=== PATIENT | female | born 1950 | race Caucasian/White ===

== ENCOUNTER → 2016-07-03 | Outpatient (CLI) | payer OTHER ==
[~2016-07-03] MED LIST: ATOR-24 PO; CLOB-65 EXT; DULO-24 PO; FLUT0.15 NAE; MELA1TAB22 PO; OMEG10007 PO; OMEP10CA2 PO; VTMD1000 PO
--- NOTE | 2016-07-03 16:42 | MAMMOGRAPHY REPORT ---
BILATERAL DIGITAL SCREENING MAMMOGRAM WITH CAD: 07/03/2016 CLINICAL HISTORY: Routine screening. Patient has no complaints. TECHNIQUE: Current study was also evaluated with a Computer Aided Detection (CAD) system. Bilatera l CC and MLO views were obtained. COMPARISON: Comparison is made to exams dated: 06/28/2015 mammogram, 06/22/2014 mammogram, 06/16/2013 ma mmogram, 06/06/2012 mammogram, 01/12/2012 specimen, and 12/21/2011 mammogram - [facility]. BREAST COMPOSITION: The tissue of both breasts is heterogeneously dense, which may obscure small ma sses. FINDINGS: No suspicious masses, calcifications, or areas of architectural distortion are noted in e ither breast. There has been no significant interval change compared to prior exams. A linear scar marker denotes a scar on the left breast. Bilateral benign-appearing calcifications are not signifi cantly changed. IMPRESSION: ACR BI-RADS CATEGORY 2: BENIGN There is no mammographic evidence of malignancy. A 1 year screening mammogram is recommended. The p atient will receive written notification of the results. Approximately 10% of breast cancers are not detected with mammography. A negative mammographic repor t should not delay biopsy if a clinically suggestive mass is present. Brittny Cheng M.D. ah/:07/03/2016 15:32:33 Drafter Cartographic: Zhane BONDS(Marce)(Jason)(BD), [facility] letter sent: Normal 1/2 BI-RADS Code: ACR BI-RADS Category 2: Benign
== END | disposition home or self-care (01) ==
LOC: C.MAMM 12:20
PROVIDERS: ATTEND Family Medicine
DX: Z12.31 Encounter for screening mammogram for malignant neoplasm of breast (principal)

== ENCOUNTER → 2016-08-28 | Outpatient (CLI) | payer OTHER ==
[2016-08-28 12:38] LABS: ALT/SGPT 28 U/L (12-78); AST/SGOT 15 U/L (15-37); BLOOD UREA NITROGEN 20 mg/dl (7-18); BUN/CREATININE RATIO 24.9 (10-20); CARBON DIOXIDE 29 mmol/L (21-32); CHLORIDE 107 mmol/L (98-107); CREATININE 0.79 mg/dl (0.60-1.20); GLUCOSE 114 mg/dl (70-99); POTASSIUM 4.2 mmol/L (3.5-5.1); SODIUM 140 mmol/L (136-145)
[2016-08-28 12:41] LABS: ALKALINE PHOSPHATASE 127 U/L (45-117)
[2016-08-28 12:48] LABS: CHOLESTEROL/HDL RATIO 4.1
[2016-08-28 13:00] LABS: ESTIMATED AVERAGE GLUCOSE 140 mg/dl; HA1C FLAG Normal (Normal)
== END | disposition home or self-care (01) ==
LOC: C.LABPVFM 09:31
PROVIDERS: ATTEND Family Medicine
DX: I10 Essential (primary) hypertension (principal); G43.909 Migraine, unspecified, not intractable, without status migrainosus; I73.00 Raynaud's syndrome without gangrene; R73.9 Hyperglycemia, unspecified

== ENCOUNTER → 2017-03-02 | Outpatient (CLI) | payer OTHER ==
[2017-03-02 13:14] LABS: HEMOGLOBIN A1C 6.6 % (4.5-5.6)
[2017-03-02 13:29] LABS: BLOOD UREA NITROGEN 14 mg/dl (7-18); CALCIUM 9.3 mg/dl (8.5-10.1); CARBON DIOXIDE 30 mmol/L (21-32); CREATININE 0.85 mg/dl (0.60-1.20); GLUCOSE 140 mg/dl (70-99); SODIUM 135 mmol/L (136-145)
== END | disposition home or self-care (01) ==
LOC: C.LABPVFM 09:14
PROVIDERS: ATTEND Family Medicine
DX: E11.9 Type 2 diabetes mellitus without complications (principal)

== ENCOUNTER → 2017-06-02 | Outpatient (CLI) | payer OTHER ==
[2017-06-02 13:36] LABS: ALBUMIN 4.1 gm/dl (3.4-5.0); ALT/SGPT 55 U/L (12-78); AST/SGOT 26 U/L (15-37); BLOOD UREA NITROGEN 18 mg/dl (7-18); CALCIUM 9.4 mg/dl (8.5-10.1); CARBON DIOXIDE 30 mmol/L (21-32); CREATININE 0.81 mg/dl (0.60-1.20); GLUCOSE 140 mg/dl (70-99); HEMOGLOBIN A1C 6.9 % (4.5-5.6); POTASSIUM 4.1 mmol/L (3.5-5.1); SODIUM 136 mmol/L (136-145)
[2017-06-02 13:42] LABS: ALKALINE PHOSPHATASE 119 U/L (45-117); CHOLESTEROL 158 mg/dl (0-200); LDL CHOLESTEROL CALCULATED 72 mg/dl
== END | disposition home or self-care (01) ==
LOC: C.LABPVFM 07:34
PROVIDERS: ATTEND Family Medicine
DX: E11.9 Type 2 diabetes mellitus without complications (principal); E78.5 Hyperlipidemia, unspecified; I10 Essential (primary) hypertension; J22 Unspecified acute lower respiratory infection

== ENCOUNTER → 2017-07-06 | Outpatient (CLI) | payer OTHER ==
--- NOTE | 2017-07-07 15:22 | MAMMOGRAPHY REPORT ---
BILATERAL DIGITAL SCREENING MAMMOGRAM TOMOSYNTHESIS WITH CAD: 07/06/2017 CLINICAL HISTORY: Routine screening. Patient has no complaints. TECHNIQUE: Breast tomosynthesis in addition to standard 2D mammography was performed. Current study was also evaluated with a Computer Aided Detection (CAD) system. COMPARISON: Comparison is made to exams dated: 07/03/2016 mammogram, 06/28/2015 mammogram, 06/22/2014 joce mogram, 06/16/2013 mammogram, 06/06/2012 mammogram, and 06/11/2011 mammogram - [facility]. BREAST COMPOSITION: There are scattered areas of fibroglandular density in both breasts. FINDINGS: There are possible clusters of microcalcifications in the upper outer middle one third of the left breast, and medial, middle one third of the left breast for which additional spot magnificat ion views are recommended. A linear scar marker overlies the left lower inner quadrant. There are also a few benign coarse calc ifications in the left breast. No other suspicious mass, architectural distortion or cluster of micro calcifications is seen. IMPRESSION: ACR BI-RADS CATEGORY 0: INCOMPLETE EVALUATION: NEED ADDITIONAL IMAGING EVALUATION The possible clusters of microcalcifications in the left breast need additional imaging evaluation. The patient will be called to schedule an appointment. Approximately 10% of breast cancers are not detected with mammography. A negative mammographic report should not delay biopsy if a clinically suggestive mass is present. So Medeiros M.D. ay/:07/06/2017 17:41:26 Plumbing Contractor: Brittanie GARNER)(Jason), [facility] letter sent: Addl Imaging 0 BI-RADS Code: ACR BI-RADS Category 0: Incomplete Evaluation: Need Additional Imaging Evaluation
== END | disposition home or self-care (01) ==
LOC: C.MAMM 09:06
PROVIDERS: ATTEND Family Medicine
DX: Z12.31 Encounter for screening mammogram for malignant neoplasm of breast (principal); R92.0 Mammographic microcalcification found on diagnostic imaging of breast

== ENCOUNTER 2019-10-28 12:34 | Inpatient (IN) ==
[2019-10-28] MEDS ORDERED: HEPARIN SOD (PORCINE) 1000 UNIT/ML 10 ML VIAL ONE (12:39)
[2019-10-28] MEDS ORDERED: TICAGRELOR 90 MG TAB PO ONE (12:39)
--- NOTE | 2019-10-28 12:50 | Emergency Department Note ---
Impression & Plan Acute [place], ST elevation (STEMI) myocardial infarction, Chest pain, Breath shortness ED Provider Note NAME: STEFAN ECHEVARRIA AGE: 69 SEX: F : 1950 ARRIVES VIA: Ambulance INFORMANT: Patient ED PROVIDER(S): Eran Leblanc DO CHIEF COMPLAINT: Chest pain HPI: Patient is a 69-year-old female who presents the ER for chest pain which started around 930 this morning. EMS was called. I received medical command. I reviewed the EKG. EKG showed anterior STEMI. STEMI alert was called. Patient notes that the chest pain started in the middle of her chest and goes through to her back. Goes up to both arms which feel heavy. She does have a history of smoking, diabetes, hypertension and hyperlipidemia. No previous heart disease. Pain is currently 9 out of 10. She received 4 nitroglycerin prior to arrival as well as complete baby aspirin. Never had any exertional chest pain or shortness of breath. ROS: See above HPI for pertinent positives & negatives. A total of 10 systems reviewed and were otherwise negative. PAST MEDICAL HISTORY:See Below PAST SURGICAL HISTORY:See Below FAMILY HISTORY:See Below SOCIAL HISTORY:See Below HOME MEDICATIONS:See Below ALLERGIES:See Below VITALS:See Below PHYSICAL EXAMINATION: GENERAL: Sitting up in bed, alert, ill-appearing, moderate distress EYE EXAM: normal conjunctiva. OROPHARYNX: no exudate, no erythema, lips, buccal mucosa, and tongue normal and mucous membranes are moist NECK: supple, no nuchal rigidity, no adenopathy, non-tender LUNGS: Clear to auscultation. Normal chest wall mechanics HEART: no murmurs, S1 normal and S2 normal ABDOMEN: abdomen soft, non-tender, normo-active bowel sounds, no masses, no rebound or guarding. BACK: Back is symmetrical on inspection and there is no deformity, no midline tenderness, no CVA tenderness. SKIN: no rashes and no bruising UPPER EXTREMITIES: upper extremities are grossly normal. Radial pulses equal bilateral LOWER EXTREMITIES: No pitting edema. Calves are equal bilateral NEURO EXAM: Normal sensorium, cranial nerves II-XII grossly intact, normal speech, no gross weakness of arms, no gross weakness of legs. MEDICAL DECISION MAKING: Patient is a 69-year-old female who presents the ER for midsternal chest pain. I received medical command and STEMI alert was called. On arrival patient had already received aspirin and nitroglycerin. Systolic blood pressures were 101. Patient was given IV fluids. IV was established chest x-ray was obtained. EKG showed ST segment elevations V1 through V6 as well as the high lateral leads with depressions in the inferior leads. Chest x-ray showed some vascular congestion. Labs showed a leukocytosis of 14,000. No significant anemia. INR was unremarkable. BMP as well as LFTs bilirubin was unremarkable. Troponin was detectable at 0.272. Lipase was normal. Patient was given Brilinta while in the ER after discussion with Dr. Gray who presented at bedside with a heart alert. was updated bedside. Patient was taken emergently to Maintenance And Operations Supervisor for STEMI. Triage Nursing notes reviewed. Prior medical records reviewed Vital Signs: reviewed and remarkable for no significant abnormalities Differential diagnosis: Differential diagnoses includes but is not limited to acute coronary syndrome, myocardial infarction, pericarditis, pulmonary embolus, aortic dissection, pneumonia, pneumothorax, musculoskeletal, shingles, esophageal. ER treatment provided: See below Diagnostics interpreted by me: ECG: Sinus rhythm rate of 61 ST depressions in the inferior leads ST elevations V1 through V6 as well as the high lateral leads Anterior STEMI Cardiac Monitoring: An order was placed for continuous cardiac monitoring. The monitor shows a rate of 68 with sinus rhythm. Laboratory studies: As stated above and show below. Imaging studies: Portable AP upright 1 view of the chest shows vascular congestion Consultation(s): Dr. Gray presented to bedside and took patient emergently to the Maintenance And Operations Supervisor for STEMI Patient will be admitted to Dr. Chavo Ma ED COURSE: Procedures: none Critical Care: I have personally spent 32 minutes of critical care time in the direct management of this patient. This includes bedside care, interpretation of diagnostic studies, and testing, discussion with consultants, patient, and family members, and other required patient management activities. This 32 minutes is in excess of all separately billable procedures. Past Med/Surg History Medical History (Updated 10/28/19 @ 16:52 by Eran Leblanc DO) Benign hypertension Cellulitis of right foot Diabetes mellitus Surgical History (System 08/14/19 @ 15:35 by Lolly Mcleod) History of bladder surgery History of oophorectomy History of tubal ligation Family History (System 08/14/19 @ 15:35 by Lolly Mcleod) Sister Breast cancer Grandmother (Paternal) Diabetes Mother Hypertension Denies family history of Ovarian cancer Prostate cancer Myocardial infarction Colorectal cancer Social History (System 08/14/19 @ 15:35 by Lolly Mcleod) Smoking Status: Former smoker Cigarettes Per Day: 20; Second Hand Exposure: No; Do You Dip or Chew Tobacco: No; Tobacco Cessation Education Requested by Patient: No Hx Alcohol Use: Yes Hx Substance Use: No Preferred Language: Irish Communication Ability: Effective Packaging Inspector Required: No Beliefs That Will Affect Care: None marital status: Current Living Situation: Spouse current occupational status: retired Other Information That Helps Us Care for You: No Feels Safe at Home: Yes Safety Concerns: Feels Safe At This Time caffeine: Yes (coffee) Dental Care, Regularly: Yes Physical Activity Frequency: Does not Exercise Seatbelt Use: always Sunscreen Use: No Allergies Allergies Allergy/AdvReac Type Severity Reaction Status Date / Time No Known Allergies Allergy Verified 10/03/19 07:52 Home Meds Home Medications Medication Instructions Recorded Confirmed ascorbic acid (vitamin C) 500 mg cap PO .1 daily cap 08/08/18 10/03/19 capsule cyanocobalamin (vitamin B-12) 100 PO .TAKE 1 TABLET DAILY tab 08/08/18 10/03/19 mcg tablet ibuprofen 200 mg tablet PO .2 tables 3 times a d tab 08/08/18 10/03/19 melatonin 5 mg tablet 1 PO .TAKE 1 TABLET Bedtim tab 08/08/18 10/03/19 pyridoxine (vitamin B6) 100 mg PO .TAKE 1 TABLET DAILY tab 08/08/18 10/03/19 tablet omega-3 fatty acids 1,000 mg 2,000 mg PO DAILY cap 08/30/18 10/03/19 capsule turmeric 400 mg capsule 400 mg PO DAILY cap 08/30/18 10/03/19 calcium carbonat and lactate 200 2 tab PO DAILY 09/05/18 10/03/19 mg calcium-vitamin D3 250 unit tablet Previous Rx's Medication Instructions Recorded fluticasone propionate 50 2 sprays INTRANASAL DAILY #18.2 gm 08/30/18 mcg/actuation nasal spray,suspension omeprazole 20 mg tablet,delayed 20 mg PO DAILY #90 tab 08/30/18 release clobetasol 0.05 % topical cream See Rx Instructions .ROUTE 01/17/19 .COMPLEX #30 gm atorvastatin 40 mg tablet 40 mg PO DAILY #30 tab 09/12/19 diltiazem HCl 120 mg capsule,24 120 mg PO DAILY #30 cap 09/12/19 hr,extended release blood sugar diagnostic #100 ea 09/28/19 lancets 30 gauge #100 ea 09/28/19 metformin 500 mg tablet See Rx Instructions .ROUTE 09/28/19 .COMPLEX #0 tab glipizide 5 mg tablet 5 mg PO BID #60 tab 10/03/19 losartan 50 mg tablet 50 mg PO DAILY #30 tab 10/03/19 Results & Data (ED) Vital Signs Vital Signs - 24 hr 10/28/19 12:34 10/28/19 12:43 10/28/19 12:45 Temperature 36.7 C Temperature Source Oral Pulse Rate 60 60 63 Pulse Rate from SpO2 Sensor 60 63 Pulse Rhythm Regular Respiratory Rate 27 H 22 23 Respiratory Effort / Characteristics Non-Labored Spontaneous Respiratory Depth Normal Respiratory Pattern Regular Blood Pressure 124/68 124/68 109/92 Blood Pressure Mean 86 83 103 Pulse Oximetry 88 L 90 89 L Oxygen Delivery Method Room Air Room Air Room Air Oxygen Flow Rate Sepsis Recent Fever Within 48 Hours No Sepsis New/Unexplained Change in Mental Status No Sepsis Action Taken by Nursing No Action Required Oxygen Flow Rate - Titration 3 Pulse Oximetry Post Tiitration 94 10/28/19 12:47 10/28/19 14:34 Temperature Temperature Source Pulse Rate 70 73 Pulse Rate from SpO2 Sensor 69 73 Pulse Rhythm Respiratory Rate 21 15 Respiratory Effort / Characteristics Respiratory Depth Respiratory Pattern Blood Pressure Blood Pressure Mean Pulse Oximetry 94 91 Oxygen Delivery Method Nasal Cannula Oxygen Flow Rate 3 Sepsis Recent Fever Within 48 Hours Sepsis New/Unexplained Change in Mental Status Sepsis Action Taken by Nursing Oxygen Flow Rate - Titration Pulse Oximetry Post Tiitration Laboratory Data Result diagrams: 10/28/19 12:45 10/28/19 12:45 Lab Results 10/28/19 10/28/19 10/28/19 Range/Units 12:45 12:45 12:45 WBC 14.51 H (4.8-10.8) K/uL RBC 4.14 L (4.2-5.4) M/uL Hgb 13.6 (12.0-16.0) g/dL Hct 39.0 (37-47) % MCV 94.2 (80-100) fL MCH 32.9 (25-34) pg MCHC 34.9 (32-36) g/dL RDW Std Deviation 41.3 (36.4-46.3) fL RDW Coeff of Rachelle 12.1 (11.5-14.5) % Plt Count 326 (130-400) K/uL MPV 9.1 (7.4-10.4) fL Immature Gran % (Auto) 0.1 % Neut % (Auto) 85.9 % Lymph % (Auto) 10.1 % Levy % (Auto) 3.4 % Eos % (Auto) 0.4 % Baso % (Auto) 0.1 % Neut # (Auto) 12.45 H (1.4-6.5) K/uL Lymph # (Auto) 1.46 (1.2-3.4) K/uL Levy # (Auto) 0.50 (0.11-0.59) K/uL Eos # (Auto) 0.06 (0-0.5) K/uL Baso # (Auto) 0.02 (0-0.2) K/uL Immature Gran # (Auto) 0.02 (0.00-0.02) K/uL PT 10.8 (9.0-12.0) Seconds INR 1.0 (0.9-1.1) APTT 22.8 (21.0-31.0) Seconds PTT Ratio 0.8 Activ Coag Time Kaolin (94-140) SECONDS Sodium 137 (136-145) mmol/L Potassium 3.9 (3.5-5.1) mmol/L Chloride 101 (98-107) mmol/L Carbon Dioxide 26 (21-32) mmol/L Anion Gap 10.0 (3-11) BUN 12 (7-18) mg/dl Creatinine 0.85 (0.6-1.2) mg/dl Est Cr Clr Drug Dosing 68.4 ml/min Est GFR ( Amer) 81.6 Est GFR (Non-Af Amer) 70.4 BUN/Creatinine Ratio 13.7 (10-20) Glucose 187 H (70-99) mg/dl Calcium 9.6 (8.5-10.1) mg/dl Total Bilirubin 0.5 (0.2-1) mg/dl AST 24 (15-37) U/L ALT 39 (12-78) U/L Alkaline Phosphatase 98 (45-117) U/L Troponin I 0.272 H* (0-0.045) ng/ml Total Protein 7.7 (6.4-8.2) gm/dl Albumin 4.0 (3.4-5.0) gm/dl Globulin 3.7 (2.5-4.0) gm/dl Albumin/Globulin Ratio 1.1 (0.9-2) Lipase 104 (73-393) U/L 10/28/19 10/28/19 Range/Units 13:34 14:03 WBC (4.8-10.8) K/uL RBC (4.2-5.4) M/uL Hgb (12.0-16.0) g/dL Hct (37-47) % MCV (80-100) fL MCH (25-34) pg MCHC (32-36) g/dL RDW Std Deviation (36.4-46.3) fL RDW Coeff of Rachelle (11.5-14.5) % Plt Count (130-400) K/uL MPV (7.4-10.4) fL Immature Gran % (Auto) % Neut % (Auto) % Lymph % (Auto) % Levy % (Auto) % Eos % (Auto) % Baso % (Auto) % Neut # (Auto) (1.4-6.5) K/uL Lymph # (Auto) (1.2-3.4) K/uL Levy # (Auto) (0.11-0.59) K/uL Eos # (Auto) (0-0.5) K/uL Baso # (Auto) (0-0.2) K/uL Immature Gran # (Auto) (0.00-0.02) K/uL PT (9.0-12.0) Seconds INR (0.9-1.1) APTT (21.0-31.0) Seconds PTT Ratio Activ Coag Time Kaolin 219 H 252 H (94-140) SECONDS Sodium (136-145) mmol/L Potassium (3.5-5.1) mmol/L Chloride (98-107) mmol/L Carbon Dioxide (21-32) mmol/L Anion Gap (3-11) BUN (7-18) mg/dl Creatinine (0.6-1.2) mg/dl Est Cr Clr Drug Dosing ml/min Est GFR ( Amer) Est GFR (Non-Af Amer) BUN/Creatinine Ratio (10-20) Glucose (70-99) mg/dl Calcium (8.5-10.1) mg/dl Total Bilirubin (0.2-1) mg/dl AST (15-37) U/L ALT (12-78) U/L Alkaline Phosphatase (45-117) U/L Troponin I (0-0.045) ng/ml Total Protein (6.4-8.2) gm/dl Albumin (3.4-5.0) gm/dl Globulin (2.5-4.0) gm/dl Albumin/Globulin Ratio (0.9-2) Lipase (73-393) U/L Administered Medications Discontinued Medications Fentanyl Citrate (Fentanyl Citrate 100 Mcg/2 Ml Vial) Confirm Administered Dose 100 mcg .ROUTE .HESKA ONE Stop: 10/28/19 12:53 Last Admin: 10/28/19 14:07 Dose: 100 mcg Documented by: [id number] Furosemide (Furosemide 40 Mg/4 Ml Vial) Confirm Administered Dose 40 mg IV .Peerio ONE Stop: 10/28/19 14:12 Last Admin: 10/28/19 15:08 Dose: Not Given Documented by: [id number] Heparin Sodium (Porcine) (Heparin Sod (Porcine) 1000 Unit/Ml 10 Ml Vial) Confirm Administered Dose 10,000 units .ROUTE .HESKA ONE Stop: 10/28/19 12:40 Last Admin: 10/28/19 13:43 Dose: 12,000 units Documented by: [id number] Cosigned by: [id number] Heparin Sodium (Porcine) (Heparin (Porcine) 1000 Unit/Ml 10 Ml (Maintenance And Operations Supervisor Use Only)) Confirm Administered Dose 10,000 units .ROUTE .HESKA ONE Stop: 10/28/19 12:53 Last Admin: 10/28/19 14:08 Dose: Not Given Documented by: [id number] Heparin Sodium (Porcine) (Heparin Sod (Porcine) 1000 Unit/Ml 10 Ml Vial) 5,000 units IV NOW STA Stop: 10/28/19 13:03 Last Admin: 10/28/19 13:43 Dose: Not Given Documented by: [id number] Heparin Sodium (Porcine) (Heparin (Porcine) 1000 Unit/Ml 10 Ml (Maintenance And Operations Supervisor Use Only)) Confirm Administered Dose 10,000 units .ROUTE .STK-MED ONE Stop: 10/28/19 13:38 Last Admin: 10/28/19 14:08 Dose: Not Given Documented by: [id number] Heparin Sodium/Sodium Chloride (Heparin In Nss Infusion 1000 Unit/500 Ml (2 U/Ml) Bag) Confirm Administered Dose 3,000 units IV .STK-MED ONE Stop: 10/28/19 12:54 Last Admin: 10/28/19 13:43 Dose: 3,000 units Documented by: [id number] Midazolam HCl (Midazolam Hcl 1 Mg/Ml 2ml Vial) Confirm Administered Dose 2 mg .ROUTE .STK-MED ONE Stop: 10/28/19 12:53 Last Admin: 10/28/19 14:08 Dose: 2 mg Documented by: [id number] Nicardipine HCl (Nicardipine Hcl Inj 2.5 Mg/Ml 10 Ml Amp) Confirm Administered Dose 25 mg .ROUTE .STK-MED ONE Stop: 10/28/19 12:53 Last Admin: 10/28/19 13:42 Dose: 25 mg Documented by: [id number] Nitroglycerin/Dextrose (Nitroglycerin/D5w 100mcg/Ml 20ml Syr) Confirm Administered Dose 2,000 mcg .ROUTE .STK-MED ONE Stop: 10/28/19 12:54 Last Admin: 10/28/19 13:43 Dose: 2,000 mcg Documented by: [id number] Ticagrelor (Ticagrelor 90 Mg Tab) Confirm Administered Dose 180 mg PO .STK-MED ONE Stop: 10/28/19 12:40 Last Admin: 10/28/19 13:07 Dose: Not Given Documented by: [id number] Ticagrelor (Ticagrelor 90 Mg Tab) 180 mg PO NOW STA Stop: 10/28/19 13:04 Last Admin: 10/28/19 13:00 Dose: 180 mg Documented by: [id number] Discharge Plan Visit Data Chief Complaint: Heart Alert ED Provider: Eran Leblanc Discharge Problem: Acute [place], ST elevation (STEMI) myocardial infarction, Chest pain, Breath shortness Patient Disposition: Admitted As Inpatient Discharge Problem: Acute [place] Qualifiers: Myocardial infarction type: unspecified Involved coronary artery: unspecified coronary artery Qualified Code(s): I21.9 - Acute myocardial infarction, unspecified ST elevation (STEMI) myocardial infarction Qualifiers: Involved coronary artery: unspecified coronary artery Qualified Code(s): I21.3 - ST elevation (STEMI) myocardial infarction of unspecified site Chest pain Qualifiers: Chest pain type: unspecified Qualified Code(s): R07.9 - Chest pain, unspecified
[2019-10-28] MEDS ORDERED: NiCARDipine HCL INJ 2.5 MG/ML 10 ML AMP ONE (12:52)
[2019-10-28] MEDS ORDERED: MIDAZOLAM HCL 1 MG/ML 2ML VIAL ONE (12:52)
[2019-10-28] MEDS ORDERED: HEPARIN (PORCINE) 1000 UNIT/ML 10 ML (CATH LAB USE ONLY) ONE ×2 (12:52→13:37)
[2019-10-28] MEDS ORDERED: fentaNYL citrate 100 MCG/2 ML VIAL ONE (12:52)
[2019-10-28] MEDS ORDERED: NITROGLYCERIN/D5W 100MCG/ML 20ML SYR ONE (12:53)
[2019-10-28 12:54] LABS: Basophils # (auto) 0.02 K/uL (0-0.2); Basophils % (auto) 0.1 %; Eosinophils # (auto) 0.06 K/uL (0-0.5); Eosinophils % (auto) 0.4 %; Hemoglobin 13.6 g/dL (12.0-16.0); Immature Granulocytes # (auto) 0.02 K/uL (0.00-0.02); Immature Granulocytes % (auto) 0.1 %; Lymphocytes # (auto) 1.46 K/uL (1.2-3.4); Lymphocytes % (auto) 10.1 %; Mean Corpuscular Hemoglobin 32.9 pg (25-34); Mean Corpuscular Hgb Conc 34.9 g/dL (32-36); Mean Corpuscular Volume 94.2 fL (80-100); Mean Platelet Volume 9.1 fL (7.4-10.4); Monocytes % (auto) 3.4 %; Neutrophils # (auto) 12.45 K/uL (1.4-6.5); Neutrophils % (auto) 85.9 %; Platelet Count 326 K/uL (130-400); RDW Coefficient of Variation 12.1 % (11.5-14.5); RDW Standard Deviation 41.3 fL (36.4-46.3); Red Blood Count 4.14 M/uL (4.2-5.4); White Blood Count 14.51 K/uL (4.8-10.8)
--- NOTE | 2019-10-28 12:54 | XRay Report ---
XR chest 1V portable HISTORY: Atypical Chest Pain COMPARISON: Chest 12/17/2014. FINDINGS: The cardiac silhouette is mildly enlarged. No pleural effusions. No pneumothorax. There is mild diffuse interstitial thickening. This has progressed. No new focal lung consolidations to sugges t pneumonia. No evidence for pulmonary edema. Old, healed right-sided rib fractures. IMPRESSION: Mild diffuse interstitial thickening and mild cardiomegaly. This has slightly progressed and could re present chronic interstitial change versus mild congestive change. ACT 112: Negative or not required by law. Electronically signed by: Pete Hernandez M.D. 10/28/2019 12:52 PM
[2019-10-28] MEDS ORDERED: HEPARIN SOD (PORCINE) 1000 UNIT/ML 10 ML VIAL IV STA (13:02)
[2019-10-28] MEDS ORDERED: TICAGRELOR 90 MG TAB PO STA (13:03)
--- NOTE | 2019-10-28 13:04 | Pre Anesthesia Assessment ---
Date of Service October 28, 2019 Pre Sedation Assessment Vital Signs Temp Pulse Resp BP Pulse Ox 10/28/19 12:34 98.1 F 60 27 H 124/68 88 L Cardiovascular RRR, no murmur, no edema Respiratory normal respiratory effort, lungs clear to auscultation Pre-Sedation Airway Assessment Smoking Status: Former smoker Hx Sleep Apnea: No Hx Difficult Intubation: No Short, Thick Neck: No Thyromental Distance: > or= 3.5 Finger Breadths Oral Cavity: + WNL Mallampati Class: III ASA: ASA3 Procedure Planning Contraindications for Sedation: none Current Medications Reviewed: Yes Notes The planned sedation has been discussed with the patient. Informed Consent was obtained. I have identified the patient, determined the appropriateness of sedation and have assessed the patient immediately prior to the procedure. All medicine(s) and interventions are by my order.
--- NOTE | 2019-10-28 13:06 | Cardiology Consultation ---
Date of Consultation October 28, 2019 Assessment & Plan (1) Acute IL: Presentation consistent with anterior STEMI and recommend proceeding with emergent cardiac catheterization and likely primary PCI. No apparent contraindications to procedure. Discussed risks, benefits, alternatives of procedure with patient and they are willing to proceed. Given IV heparin and ticagrelor 180 mg in the ED. Further recommendations pending findings of coronary angiography. History of Present Illness History of Present Illness 69-year-old woman here with acute chest pain and ECG concerning for acute IL. Patient seen emergently in the ED after heart alert activated upon arrival. No prior cardiac history. Cardiac risk factors include type 2 diabetes, prior long-term smoker, hypertension, dyslipidemia. Other medical issues include GERD. Chest pain began approximately 9:30 AM, around 3 hours prior to arrival while pulling weeds. Describes 12/01 substernal pain with associated nausea, diaphoresis. Denies similar symptoms in the past. Chest pain now still 810. Hemodynamically stable. EKG showed anterior ST elevation. Allergies Allergy/AdvReac Type Severity Reaction Status Date / Time No Known Allergies Allergy Verified 10/03/19 07:52 Home Medications Home Medications Medication Instructions Recorded Confirmed Type ascorbic acid (vitamin C) 500 mg cap PO .1 daily cap 08/08/18 10/03/19 History capsule cyanocobalamin (vitamin B-12) 100 PO .TAKE 1 TABLET DAILY tab 08/08/18 10/03/19 History mcg tablet ibuprofen 200 mg tablet PO .2 tables 3 times a d tab 08/08/18 10/03/19 History melatonin 5 mg tablet 1 PO .TAKE 1 TABLET Bedtim tab 08/08/18 10/03/19 History pyridoxine (vitamin B6) 100 mg PO .TAKE 1 TABLET DAILY tab 08/08/18 10/03/19 History tablet fluticasone propionate 50 2 sprays INTRANASAL DAILY #18.2 gm 08/30/18 10/03/19 R x mcg/actuation nasal spray,suspension omega-3 fatty acids 1,000 mg 2,000 mg PO DAILY cap 08/30/18 10/03/19 History capsule omeprazole 20 mg tablet,delayed 20 mg PO DAILY #90 tab 08/30/18 10/03/19 Rx release turmeric 400 mg capsule 400 mg PO DAILY cap 08/30/18 10/03/19 History calcium carbonat and lactate 200 2 tab PO DAILY 09/05/18 10/03/19 History mg calcium-vitamin D3 250 unit tablet clobetasol 0.05 % topical cream See Rx Instructions .ROUTE 01/17/19 10/03/19 Rx .COMPLEX #30 gm atorvastatin 40 mg tablet 40 mg PO DAILY #30 tab 09/12/19 10/03/19 Rx diltiazem HCl 120 mg capsule,24 120 mg PO DAILY #30 cap 09/12/19 10/03/19 Rx hr,extended release blood sugar diagnostic #100 ea 09/28/19 10/03/19 Rx lancets 30 gauge #100 ea 09/28/19 10/03/19 Rx metformin 500 mg tablet See Rx Instructions .ROUTE 09/28/19 10/03/19 Rx .COMPLEX #0 tab glipizide 5 mg tablet 5 mg PO BID #60 tab 10/03/19 10/03/19 Rx losartan 50 mg tablet 50 mg PO DAILY #30 tab 10/03/19 10/03/19 Rx Patient History Medical History (Updated 10/28/19 @ 13:06 by Trevor Gray MD) Benign hypertension Cellulitis of right foot Diabetes mellitus Surgical History (System 08/14/19 @ 15:35 by Lolly Mcleod) History of bladder surgery History of oophorectomy History of tubal ligation Family History (System 08/14/19 @ 15:35 by Lolly Mcleod) Sister Breast cancer Grandmother (Paternal) Diabetes Mother Hypertension Denies family history of Ovarian cancer Prostate cancer Myocardial infarction Colorectal cancer Social History (System 08/14/19 @ 15:35 by Lolly Mcleod) Smoking Status: Former smoker Cigarettes Per Day: 20; Second Hand Exposure: No; Hx Alcohol Use: Yes Hx Substance Use: No Preferred Language: Welsh marital status: Current Living Situation: Spouse current occupational status: retired Feels Safe at Home: Yes caffeine: Yes (coffee) Dental Care, Regularly: Yes Physical Activity Frequency: Does not Exercise Seatbelt Use: always Sunscreen Use: No Review of Systems Review of Systems: Not obtained in setting of emergent situation Physical Exam Physical Exam: General: Uncomfortable HEENT: Sclerae anicteric, mucous membranes moist Lungs: Clear to auscultation bilaterally Cardiac: Regular rate and rhythm, no murmurs Abdomen: Soft, nontender Extremities: Warm, well perfused, no edema. 2+ radial pulses Skin: No rashes or lesions. Neuro: Nonfocal Psych: Alert orient x3, normal affect and mood Results & Data ([facility]) Vital Signs (Past 12 Hours) Vital Signs Temp Pulse Resp BP Pulse Ox 10/28/19 12:34 98.1 F 60 27 H 124/68 88 L PG Care Time/CCT Total # of Minutes Spent Total Time Spent with Patient: Total time spent is greater than 50% in coordination of care (as documented) at patient's floor/unit and/or counseling patient: Coding Level of Care Code 75872 Inpt Consult Level 5 Diagnoses Acute IL I21.9
[2019-10-28 13:08] LABS: Partial Thromboplastin Ratio 0.8; Partial Thromboplastin Time 22.8 Seconds (21.0-31.0); Prothrombin Time 10.8 Seconds (9.0-12.0)
[2019-10-28 13:20] LABS: BUN Creatinine Ratio 13.7 (10-20); Calcium 9.6 mg/dl (8.5-10.1); Creatinine Clr Calc Pharmacy 68.4 ml/min; Est GFR (African American) 81.6; Est GFR (Non-African American) 70.4; Potassium 3.9 mmol/L (3.5-5.1)
[2019-10-28 13:28] LABS: Albumin Globulin Ratio 1.1 (0.9-2); Bilirubin,Total 0.5 mg/dl (0.2-1); Globulin 3.7 gm/dl (2.5-4.0); Total Protein 7.7 gm/dl (6.4-8.2); Troponin I 0.272 ng/ml (0-0.045)
[2019-10-28] MEDS ORDERED: FUROSEMIDE 40 MG/4 ML VIAL IV ONE (14:11)
[2019-10-28] MEDS ORDERED: ACETAMINOPHEN 325 MG TAB PO PRN (14:30)
[2019-10-28] MEDS ORDERED: ONDANSETRON INJ 2 MG/ML 2 ML VIAL IV PRN (14:30)
[2019-10-28] MEDS ORDERED: NITROGLYCERIN SL 0.4 MG/TAB TAB SL PRN (14:30)
[2019-10-28] MEDS ORDERED: ICU PROTOCOL FOR HYPERGLYCEMIA PRN (14:35)
--- NOTE | 2019-10-28 14:39 | Post Anesthesia Assessment ---
Date of Service October 28, 2019 Post Sedation Assessment Vital Signs Temp Pulse Resp BP Pulse Ox 10/28/19 12:47 70 21 94 10/28/19 12:45 63 23 109/92 89 L 10/28/19 12:43 60 22 124/68 90 10/28/19 12:34 98.1 F 60 27 H 124/68 88 L Recovery Score Activity: Moves 4 extremities Respiration: Deep Breath/Cough Circulation: +/-20% PreAnes Value Consciousness: Fully Awake Oxygen Saturation: O2 needed for >90% Discharge Sedation Level of Care: Fast Track Phase II Post Sedation Plan On clinical assessment, the patient appears to have tolerated the sedation without complications. Patient is recovering as anticipated. Patient will continue to be monitored by nursing and may be discharged when sedation discharge criteria are met per below protocol. Upon Completions of procedure up to 15 minutes continue every 5 minute vital signs and the P.A.R. score; then discharge to a Phase I or Fast Track to Phase II per the following guidelines: * Discharge Patient to appropriate Phase II area if PAR is 8 or greater or return to pre- procedure baseline. The post - procedure orders will be as directed. * If PAR score is less than 8 or not return to pre-procedure baseline then patient will follow Phase I monitoring till PAR is reached for Phase II. The Phase I may be done in procedure room or may call to secure a Phase I area. * If naloxone or flumazenil are used for reversal, hold in Phase I for continued monitoring from when last reversal dose was given for a minimum of 60 minutes or longer pending the nurse and/or physician discretion of patient condition before discharge to Phase II. Please call the Sedation Physician to re-evaluate and complete post-note for discharge to Phase II area. Do NOT discharge from procedure sedation or Phase 1 until post- sedation evaluation note is complete by procedure /sedation MD Sedation Discharge Instructions to be given to the patient at discharge to home.
--- NOTE | 2019-10-28 14:53 | Cardiac Catheterization ---
[facility] Data: Superintendent Transportation Cardiac Status Clinical evaluation leading to the procedure CAD Presenation: STEMI Anginal Classification: CCS IV Heart Failure: No Cardiogenic Shock within 24 Hours: No Cardiac Arrest within 24 Hours: No Imaging Studies Past 6 Months: No Stress Studies Past 6 Months: No Diagnostic Physicians Name: Erich Gray MD Status: Emergency Closure Device Percutaneous Entry Location: Femoral Closure Device: Angio-Seal Recommendations: PCI without planned CABG PCI Indication: Immediate PCI for STEMI First Noted: First EKG Lesion Segment Name: Proximal LAD Culprit Artery: Yes Stenosis Prior to Rx (%): 100 Pre-Procedure OTTO Flow: 0 Previously Treated Lesion: No Lesion Complexity: Non-High/Non-C Lesion Length (mm): 20 Thrombus Present: Yes Bifurcation Lesion: Yes Guidewire Across Lesion: Stenosis Post-Procedure (%): 0 Post-Procedure OTTO Flow: 3 Devices(s) Deployed: Yes Yes Intraprocedure Events Significant Disection: No Perforation: No Cardiac Cath Procedure Full Procedure Date October 28, 2019 Pre-Procedure Diagnosis Pre-Procedure Diagnosis: STEMI AUC Score AUC Score: 9 Post-Procedure Diagnosis Post-Procedure Diagnosis: Severe CAD, Successful PCI and Elevated Intracardiac Pressures Procedure(s) Performed Procedure(s) Performed: Coronary Angiography, Left Heart Cath, PTCA and Drug Eluting Stent Wire Photo Operator Erich Gray MD Air Saw Operator(s) Fer Estimated Blood Loss Estimated Blood Loss: 15 Medication(s) Medication(s): Fentanyl, Heparin, Lidocaine 1%, Nicardipine, Nitroglycerin and Versed Medication(s): Ticagrelor Summary of Findings Indication: STEMI/Heart Alert Access: 6 Fr right radial arteryunable to navigate into brachial artery. Converted to right femoral artery, 6 Fr sheath placed Catheters: EBU 3.5 guide, diagnostic JR4 Findings: LM -short, luminal irregularities LAD -large caliber, 100% proximal acute occlusion Circumflex -large caliber vessel, 20% ostial, 20 to 30% mid segment disease, medium caliber OM 2, left PLB without significant disease RCA -dominant, large caliber vessel, 20-30% lateproximal stenosis, mid to distal segment luminal irregularities. LVEDP -33 -- PCI -- Antithrombotic therapy: Heparin, ticagrelor Procedure: Left main cannulated with EBU 3.5 guide Caddy Packer 50 wire passed across lesion into distal vessel Proximal to mid LAD lesion predilated with 2.5 compliant balloon Acute plaque and high-grade stenosis noted in medium caliber diagonal at site of occlusion. Caddy Packer 50 wire navigated into diagonal Proximal first diagonal dilated with 2.0 balloon Dilated LAD lesion stented with 3.0 x 26 mm [place] drug-eluting stent Multiple attempts made to wire back into diagonal but unsuccessful Stent post-dilated with 4.0 noncompliant balloon IC vasodilators administered for spasm Questionable haziness at distal aspect of stent and due to concern for possible edge dissection second overlapping NATALIYA placed (2.5 x 12 mm [place]) Able direct second rotor pilot 50 wire into diagonal Diagonal through stent struts dilated with 2.0 balloon Post procedure OTTO 3 flow, stent well expanded with minimal residual stenosis and no apparent cardiac complications. Mild to moderate residual ostial diagonal stenosis but OTTO-3 flow. Arterial Closure: Angio-Seal Summary: 1. Anterior STEMI/100% acute proximal LAD occlusion 2. Mild non-culprit vessel coronary artery disease -20 to 30% mid circumflex, 20 to 30% late proximal RCA 3. Elevated intracardiac filling pressure (received IV Lasix 40 mg x 1). 4. Successful PCI of proximal to mid LAD with 2 overlapping drug-eluting stents (3.0 x 26, 2.5 x 12 mm Zheng; postdilated proximally with 4.0 NC). -Successful angioplasty of ostial first diagonal through stent struts with 2.0 balloon Recommendations: Admit to ICU for continued monitoring Loaded with ticagrelor 180 mg Continue dual-antiplatelet therapy for at least 1 year. Trend troponins until peak, Check Echo Uptitrate beta-jose manuel/ARB as BP allows High-dose statin Consult cardiac Rehab Hemodynamics Rest Ao:: 132/67/24 Final Ao: 128/62/93 LV: 138/33 Recommendations Recommendations: PCI without planned CABG Specimens Specimens: None Radiation Exposure (mGy) 3227 Contrast (mls) 105 Fluids (cc crystalloids) Fluids (cc crystalloids): 100 Drains Drains: None Anesthesia Moderate Procedural Complication(s) None Disposition ICU I attest to the content of the Intraoperative Record and any orders documented therein. Any exceptions are noted below. MiewG Card Cath Procedure Codes Cardiac Catheterization Procedure 1: Cardiovascular Cath Procedures: 05294 Coronaries and LHC (+/-LV) Moderate Sedation Procedure 1: Sedation/Anesthesia: 77368 Mod Sedation by the same physician;Init15 Min Child Age 5 & Up Procedure 2: Sedation/Anesthesia: 90309 Mod Sedation by the same physician; Ea [id number] Minutes Angioplasty Procedure 1: Cardiovascular Angioplasty Procedures: 86673 PTCA; silvio addl branch of a major cor art RC LC LD Stenting Procedure 1: Cardiovascular Stent Procedures: 26873 Perc transluminal revascularization of acute sub/total occl, aMI PG Care Time/CCT Total # of Minutes Spent Total Time Spent with Patient: Total time spent is greater than 50% in coordination of care (as documented) at patient's floor/unit and/or counseling patient:
[2019-10-28] MEDS ORDERED: PHARMACY GLYCEMIC MGMT CONSULT PRN (15:27)
[2019-10-28] MEDS ORDERED: GLUCOSE 10 TABS/TUBE PO PRN (15:45)
[2019-10-28] MEDS ORDERED: CARBOHYDRATES FOR HYPOGLYCEMIA PO PRN (15:45)
[2019-10-28] MEDS ORDERED: GLUCOSE 40% GEL 15 GM TUBE PO PRN (15:45)
[2019-10-28] MEDS ORDERED: GLUCAGON FOR INJ 1 MG VIAL IM PRN (15:45)
[2019-10-28] MEDS ORDERED: DEXTROSE 50% 50 ML SYRINGE IV PRN (15:45)
--- NOTE | 2019-10-28 15:45 | Pharmacy Report ---
Glycemic Control Consultation - Date of Service October 28, 2019 - Scope Scope: Glycemic Pharmacist consulted for glycemic control and to write orders per [facility] inpatient glycemic control protocol. - Objective Weight: 89 kg Accuchecks BSG (last 24hrs): 10/28/19 12:45 Glucose 187 H Laboratory Data (last 24hrs): 10/28/19 12:45 Potassium 3.9 Carbon Dioxide 26 Anion Gap 10.0 Creatinine 0.85 Est Cr Clr Drug Dosing 68.4 - Recent Pertinent Medications Outpatient Anti-diabetic Regimen: * Metformin 1000 mg PO QAM + 500 mg PO QPM; Glipizide 5 mg PO BID Risk Factors for Insulin Resistance: * Recent Surgery * POD #0 s/p cardiac catheterization * Diet: * T2DM - Assessment & Plan Assessment & Plan: ASSESSMENT: * 69 yo F admitted secondary to STEMI now s/p cardiac catheterization. Pharmacy is consulted for inpatient glycemic control. Patient maintained on oral anti- diabetic medications at home. * Pt is maintained on oral antidiabetic agents as an outpatient. Oral agents are not recommended for inpatient use d/t drug interactions, changing PO intake, and difficulty titrating for acute hyper/hypoglycemia. ADA recommends re- initiating outpatient oral agents 1-2 days prior to discharge if/when appropriate if they were held on admission. Will hold oral agents for admission and utilize SQ basal bolus insulin regimen which is the recommended regimen for inpatient glycemic control. * Admission BSG was 187 mg/dL. Dinner BSG was 190 mg/dL. Will start with a 0.1 unit/kg basal dose x 1 then start Novolog based on weight and stress of 2. Will not order any further basal following one time dose. PLAN FOR INPATIENT GLYCEMIC CONTROL: * Holding outpatient oral diabetes medications * Basal insulin * Lantus 10 units SQ x 1 * Bolus insulin * NovoLog per scale ACHS or Q6hrs while NPO * Goal Range: Low 110 mg/dL - High 140 mg/dL * Correction Factor: 25 mg/dL/unit * Nutritional / Prandial insulin per carb ratio of 1 unit per 9 grams CHO consumed * Please note that the plan above was derived based on current level of insulin resistance and hospital stress. These recommendations are appropriate for inpatient admission only. Plan of care upon discharge will need to be reassessed to avoid potential outpatient hypo/hyperglycemia. Thank you.
--- NOTE | 2019-10-28 15:51 | Communication Note ---
Date of Service: October 28, 2019 Called by ICU nurse Lukasz regarding right forearm. During cardiac catheterization, right radial artery was first attempted but wire sufficiently advanced beyond the forearm. She reported to jaw shock that her right forearm was painful. He noted swelling and some tightness in that area. Pulse ox was on that right hand as she still has a TR band in place. She has continued to have an adequate waveform on her pulse oximeter. I presented to the bedside. There is no obvious hematoma but there was a significant swelling of her right forearm compared to the left. She was tender throughout. Although there was swelling, the right forearm was not firm/tight. There was no ecchymosis. Discussed with Lukasz to raise her right arm. Patient and her were informed that this is likely due to bleeding from within the forearm from right radial artery. Dr. Gray was also notified. Lukasz has since inform me that the pain has worsened somewhat. Recommend blood pressure cuff be placed on her right forearm at 70 mm of mercury for approximately 20 minutes to help promote hemostasis. There was no evidence of compartment syndrome. Lukasz was asked notify immediately for worsening condition.
--- NOTE | 2019-10-28 17:06 | History & Physical Report ---
Date of Service October 28, 2019 Assessment & Plan (1) ST elevation (STEMI) myocardial infarction: Appreciate interventional cardiology management s/p x2 LAD NATALIYA ASA, Brillanta, BB, ACEi, statin per cardiology recommendations Former smoker - recently quit TTE (2) Hyperlipidemia: Switch simvastatin to atorvastatin per cardiology recommendations (3) Fibromyalgia: No home meds (4) Acid reflux disease: continue home meds (5) Diabetes mellitus: HbA1C with AM labs Consult glycemic control in setting of STEMI Recently increased glipizide due to elevated HbA1C as outpatient Admission and Anticipated Discharge Date Admission Date: October 28, 2019 History of Present Illness Chief Complaint: STEMI Primary Care Provider: Gordon Marcelino DO Nayeli Botello is a 69 year old female who presents to the ER with chest pain that started at 9:30am while gardening. Severity 12/01. Radiating to back and down both arms. Significant risk factors of hyperlipidemia, T2DM, hypertension, former smoker. Called EMS. Heart alert due to anterior ST elevated on EKG. No prior anginal symptoms to this episode. No known CV disease prior to this episode. Taken emergently to industrial laborer. Failed right radial cath attempt. Successful femoral approach with PCI of proximal LAD with 2 overlapping NATALIYA and baloon angioplasty of ostial first diagonal through stent. Lasix given for raised intracardiac pressures. Patient seen in the ICU after cardiac catheterization. No chest pain at the present time. Discussed care with Dr Gray. Allergies Allergy/AdvReac Type Severity Reaction Status Date / Time No Known Allergies Allergy Verified 10/03/19 07:52 Home Medications Home Medications Medication Instructions Recorded Confirmed Type ascorbic acid (vitamin C) 500 mg 500 cap PO DAILY cap 08/08/18 10/28/19 History capsule cyanocobalamin (vitamin B-12) 100 100 mcg PO DAILY tab 08/08/18 10/28/19 History mcg tablet melatonin 5 mg tablet 5 mg PO DAILY tab 08/08/18 10/28/19 History pyridoxine (vitamin B6) 100 mg 100 mg PO DAILY tab 08/08/18 10/28/19 History tablet fluticasone propionate 50 2 sprays INTRANASAL DAILY #18.2 gm 08/30/18 10/28/19 R x mcg/actuation nasal spray,suspension omega-3 fatty acids 1,000 mg 2,000 mg PO DAILY cap 08/30/18 10/28/19 History capsule omeprazole 20 mg tablet,delayed 20 mg PO DAILY #90 tab 08/30/18 10/28/19 Rx release turmeric 400 mg capsule 400 mg PO DAILY cap 08/30/18 10/28/19 History calcium carbonat and lactate 200 2 tab PO DAILY 09/05/18 10/28/19 History mg calcium-vitamin D3 250 unit tablet clobetasol 0.05 % topical cream See Rx Instructions .ROUTE 01/17/19 10/28/19 Rx .COMPLEX #30 gm blood sugar diagnostic #100 ea 09/28/19 10/28/19 Rx lancets 30 gauge #100 ea 09/28/19 10/28/19 Rx metformin 500 mg tablet See Rx Instructions .ROUTE 09/28/19 10/28/19 Rx .COMPLEX #0 tab glipizide 5 mg tablet 5 mg PO BID #60 tab 10/03/19 10/28/19 Rx losartan 50 mg tablet 50 mg PO DAILY #30 tab 10/03/19 10/28/19 Rx Excedrin Migraine 1 tab PO UD PRN 10/28/19 10/28/19 History aspirin 81 mg PO QAM #30 tab 10/30/19 Rx atorvastatin 80 mg PO QAM #60 tab 10/30/19 Rx metoprolol tartrate 12.5 mg PO BID #60 tab 10/30/19 Rx nitroglycerin 0.4 mg SUBLINGUAL Q5M PRN #20 tab 10/30/19 Rx ticagrelor [Brilinta] 90 mg PO BID #60 tab 10/30/19 Rx Past Med/Surg History Medical History (Updated 10/30/19 @ 13:56 by Freddie Kearney MD) Benign hypertension CAD (coronary artery disease) Cellulitis of right foot Diabetes mellitus Hypertension Paroxysmal atrial fibrillation ST elevation (STEMI) myocardial infarction Surgical History (Updated 10/29/19 @ 13:35 by Freddie Kearney MD) History of bladder surgery History of oophorectomy History of tubal ligation S/P drug eluting coronary stent placement Family History Sister Breast cancer Grandmother (Paternal) Diabetes Mother Hypertension Denies family history of Ovarian cancer Prostate cancer Myocardial infarction Colorectal cancer Social History Smoking Status: Former smoker Cigarettes Per Day: 20; Second Hand Exposure: No; Hx Alcohol Use: Yes Hx Substance Use: No Preferred Language: Georgian Communication Ability: Effective Freight Car Cleaner Required: No Beliefs That Will Affect Care: None marital status: Current Living Situation: Spouse current occupational status: retired Feels Safe at Home: Yes caffeine: Yes (coffee) Dental Care, Regularly: Yes Physical Activity Frequency: Does not Exercise Seatbelt Use: always Sunscreen Use: No Review of Systems Review of Systems: All systems reviewed & are unremarkable except as noted in HPI & below Physical Exam Constitutional: well developed and well nourished; no acute distress Eyes: PERRL, conjunctivae normal, anicteric sclerae ENMT: external ear and nose normal, oropharynx normal Neck: trachea midline, no thyromegaly Respiratory: normal respiratory effort, lungs clear to auscultation Cardiovascular: RRR, no murmur, no edema Gastrointestinal (Abdomen): normal bowel sounds, soft, nontender, no hepatosplenomegaly Musculoskeletal: no cyanosis or clubbing, extremities motor strength 5/5 Skin: no rashes, warm and dry Neurologic: moves all extremities and awake; not confused Psychiatric: A+Ox3, euthymic affect Genitourinary: no CVA tenderness Lymphatic: no cervical or axillary lymphadenopathy Results & Data Results & Data ([facility]) Vital Signs (Past 12 Hours) Vital Signs Temp Pulse Pulse Resp BP BP Pulse Ox 10/28/19 15:15 66 21 113/72 95 10/28/19 15:01 70 25 H 93 10/28/19 15:00 72 27 H 125/75 92 10/28/19 14:59 71 27 H 115/59 L 10/28/19 14:45 71 18 90 10/28/19 14:39 37.3 C 65 20 136/71 92 10/28/19 14:37 74 18 136/71 90 10/28/19 14:34 73 15 91 10/28/19 12:47 70 21 94 10/28/19 12:45 63 23 109/92 89 L 10/28/19 12:43 60 22 124/68 90 10/28/19 12:34 36.7 C 60 27 H 124/68 88 L Diagnostic Findings XR chest 1V portable IMPRESSION: Mild diffuse interstitial thickening and mild cardiomegaly. This has slightly progressed and could represent chronic interstitial change versus mild congestive change. ECG Indication: chest pain Rate (beats per minute): 61 Rhythm: normal sinus Findings: + ST depression (reciprocal changes) and + ST elevation (Anterior) Comparison ECG Date: from (Oct 09, 2019) Change: no significant change Code Status & VTE Plan Code Status Full VTE Prophylaxis Plan VTE Prophylaxis will be ordered: Yes PG Care Time/CCT Total # of Minutes Spent Total Time Spent with Patient: Total time spent is greater than 50% in coordination of care (as documented) at patient's floor/unit and/or counseling patient: Coding Level of Care Code 77135 Initial Inpt Care Lvl [address] elevation (STEMI) myocardial infarction I21.3 Involved coronary artery: unspecified coronary artery Hyperlipidemia E78.5 Fibromyalgia M79.7 Acid reflux disease K21.9 Diabetes mellitus E11.9 (1) ST elevation (STEMI) myocardial infarction Involved coronary artery: unspecified coronary artery Qualified Code(s): I21.3 - ST elevation (STEMI) myocardial infarction of unspecified site
[2019-10-28] MEDS ORDERED: LANTUS PER UNIT CHARGE SQ ONE (17:15)
[2019-10-28] MEDS: INSULIN ASPART 100 UNITS/ML 3 ML PEN SC SCH ×2 (17:39→20:09)
--- NOTE | 2019-10-28 19:15 | Critical Care Consultation ---
Date of Consultation October 28, 2019 Assessment & Plan (1) Admitted to intensive care unit: Reason Critically Ill: Patient is a 69-year-old female with acute STEMI status post PTCA with NATALIYA x2 to the LAD requiring close hemodynamic monitoring status post coronary intervention. NEURO - * CAM ICU: NEGATIVE CARDIAC/VASCULAR - * Acute STEMI s/p PTCA w/ NATALIYA x2 to the LAD: * Trend troponins. * AM Echo. * ASCVD Rx per typical. * w/ c/o chest pain at change of shift. * EKG at shift change shows no acute changes. Improved w/ Maalox and Morphine. * RUE w/ edema. Patient remains w/ FROM, strength, and sensation throughout. No exam findings consist w/ compartment syndrome. Will continue to monitor for any changes. * Monitor on telemetry. RESPIRATORY - * Encourage smoking cessation. GI/NUTRITION - * AHA diet * GERD: continue home Rx. Maalox as needed. RENAL/LYTES - * No significant electrolyte derangements. - * No concerns at this time. ENDO - * DMII * BSGs per unit protocol. ISS --> gtt per unit policy. HEME - * Stable H&H ID - * No concerns for infection at this time. LINES/IV ACCESS - * PIVs x2 DVT PROPHYLAXIS - * Hold on Rx s/p interventional Rx. * SCDs I have personally spent 35 minutes of critical care time in the direct management of this patient. This is a life/limb threatening event. This includes time spent evaluating patient, direct bedside care, chart review, placing orders, interpretation of diagnostic studies, discussion with consultants, patient, and family members, as well as other required patient management activities. This time is exclusive of all separately billable procedures, and teaching time and separate from and in addition to any other critical care service time. Thank you for allowing us to participate in the care of this patient. Please refer to my attending physician's documentation for any further recommendations. (2) ST elevation (STEMI) myocardial infarction: (3) Chest pain: (4) S/P PTCA (percutaneous transluminal coronary angioplasty): (5) S/P drug eluting coronary stent placement: (6) Hyperlipidemia: (7) Diabetes mellitus: (8) Acid reflux disease: Supervising Physician Co-Signing Physician Notes I have personally evaluated and examined this patient. I agree with assessment and plan of Dionisio Guerra PA-C. Please refer to 10/28 progress note. History of Present Illness Attending Physician: Chavo Ma MD History of Present Illness Patient is a 69-year-old female with a significant past medical history of hyper lipidemia and extensive smoking history who presented to the emergency department earlier this afternoon with an acute onset of central chest pain with radiation to the bilateral upper arms. Initially, the patient was working in her garden when she developed what she initially felt was acid reflux symptoms. She reports that the pain radiated to the LEFT-sided chest which prompted her visit to the emergency department. Upon arrival, patient was found to have an acute ST segment elevation myocardial infarction. Heart alert had been called in route to the emergency department. She was taken to the catheterization suite where she underwent successful PTCA with NATALIYA x2 to the LAD. Upon evaluation in the ICU, the patient is awake, alert, and oriented. She is describing some central chest discomfort with a burning sensation similar to acid reflux she has experienced in the past. She does admit that she has had some slight radiation to the LEFT-sided chest. She rates her discomfort a 5/10. Her initial discomfort upon arrival was 10/10. She reports this is greatly improved. Patient does complain of some pain and swelling to the right forearm. Otherwise, she reports no other complaints at this time. Allergies Allergy/AdvReac Type Severity Reaction Status Date / Time No Known Allergies Allergy Verified 10/03/19 07:52 Home Medications Home Medications Medication Instructions Recorded Confirmed Type ascorbic acid (vitamin C) 500 mg 500 cap PO DAILY cap 08/08/18 10/28/19 History capsule cyanocobalamin (vitamin B-12) 100 100 mcg PO DAILY tab 08/08/18 10/28/19 History mcg tablet melatonin 5 mg tablet 5 mg PO DAILY tab 08/08/18 10/28/19 History pyridoxine (vitamin B6) 100 mg 100 mg PO DAILY tab 08/08/18 10/28/19 History tablet fluticasone propionate 50 2 sprays INTRANASAL DAILY #18.2 gm 08/30/18 10/28/19 Rx mcg/actuation nasal spray,suspension omega-3 fatty acids 1,000 mg 2,000 mg PO DAILY cap 08/30/18 10/28/19 History capsule omeprazole 20 mg tablet,delayed 20 mg PO DAILY #90 tab 08/30/18 10/28/19 Rx release turmeric 400 mg capsule 400 mg PO DAILY cap 08/30/18 10/28/19 History calcium carbonat and lactate 200 2 tab PO DAILY 09/05/18 10/28/19 History mg calcium-vitamin D3 250 unit tablet clobetasol 0.05 % topical cream See Rx Instructions .ROUTE 01/17/19 10/28/19 Rx .COMPLEX #30 gm atorvastatin 40 mg tablet 40 mg PO DAILY #30 tab 09/12/19 10/28/19 Rx diltiazem HCl 120 mg capsule,24 120 mg PO DAILY #30 cap 09/12/19 10/28/19 Rx hr,extended release blood sugar diagnostic #100 ea 09/28/19 10/28/19 Rx lancets 30 gauge #100 ea 09/28/19 10/28/19 Rx metformin 500 mg tablet See Rx Instructions .ROUTE 09/28/19 10/28/19 Rx .COMPLEX #0 tab glipizide 5 mg tablet 5 mg PO BID #60 tab 10/03/19 10/28/19 Rx losartan 50 mg tablet 50 mg PO DAILY #30 tab 10/03/19 10/28/19 Rx Excedrin Migraine 1 tab PO UD PRN 10/28/19 10/28/19 History Patient History Medical History Benign hypertension Cellulitis of right foot Diabetes mellitus Surgical History History of bladder surgery History of oophorectomy History of tubal ligation Family History Sister Breast cancer Grandmother (Paternal) Diabetes Mother Hypertension Denies family history of Ovarian cancer Prostate cancer Myocardial infarction Colorectal cancer Social History Smoking Status: Former smoker Cigarettes Per Day: 20; Second Hand Exposure: No; Do You Dip or Chew Tobacco: No; Tobacco Cessation Education Requested by Patient: No Hx Alcohol Use: Yes Hx Substance Use: No Preferred Language: Welsh Communication Ability: Effective Server Programmer Required: No Beliefs That Will Affect Care: None marital status: Current Living Situation: Spouse current occupational status: retired Other Information That Helps Us Care for You: No Feels Safe at Home: Yes Safety Concerns: Feels Safe At This Time caffeine: Yes (coffee) Dental Care, Regularly: Yes Physical Activity Frequency: Does not Exercise Seatbelt Use: always Sunscreen Use: No Review of Systems Review of Systems: A complete 10 point review of systems was reviewed with the patient with pertinent positives and negatives as per history of present illness. All else were negative. Physical Exam Physical Exam: VITAL SIGNS - Vital signs and nursing notes were reviewed. GENERAL - 69-year-old female appearing her stated age who is in no acute distress. Communicates well with provider and answers questions appropriately. HEAD - NC/AT. EYES - PERRL with EOMI bilaterally. Sclera anicteric. Palpebral conjunctiva pink and moist with no injection noted. EARS - No deformities of external structures noted on gross examination bilaterally. NOSE - Midline and without cyanosis. No epistaxis or purulent drainage noted. MOUTH/OROPHARYNX - Without perioral cyanosis. Buccal mucosa pink and moist and without leukoplakia. NECK - Neck with FROM. Supple to palpation. LUNGS - Chest wall symmetric without accessory muscle use, intercostals retractions, or central cyanosis. Normal vesicular breath sounds CTA B/L. No wheezes, rales, or rhonchi appreciated. CARDIAC - RRR with S1/S2. No murmur, rubs, or gallops appreciated. No reproducible tenderness to palpation appreciated over the anterior chest wall. ABDOMEN - Abdominal contour obese without pulsations or visible masses. BS normoactive all four quadrants. No tenderness, palpable masses, hepatosplenomegaly, or ascites noted. EXTREMITIES - No clubbing or peripheral cyanosis. Moderate edema noted to the RUE from the elbow to the hand. Patient remains with FROM of the RUE w/ +5/5 strength appreciated. Full sensation intact. Compartments soft to palpation. No pretibial edema present. +3/5 radial and dorsalis pedis pulses palpated throughout. +5/5 strength noted in UE/LE bilaterally. NEUROLOGIC - Cranial nerves II through XII grossly intact. Sensory intact to light touch throughout. PSYCH - A&Ox3 and cooperates fully with examiner. Pt is very pleasant and interacts well with examiner. Results & Data Results & Data ([facility]) Vital Signs (Past 12 Hours) Vital Signs Temp Pulse Pulse Resp BP BP Pulse Ox 10/28/19 18:31 69 19 93 10/28/19 18:30 68 17 130/74 93 10/28/19 18:16 66 18 94 10/28/19 18:15 83 17 129/72 93 10/28/19 18:01 70 20 95 10/28/19 18:00 72 24 111/72 95 10/28/19 17:46 71 22 96 10/28/19 17:45 71 23 120/66 95 10/28/19 17:31 79 24 95 10/28/19 17:30 74 19 147/79 H 96 10/28/19 17:16 76 20 95 10/28/19 17:15 73 19 125/79 95 10/28/19 17:00 79 19 96 10/28/19 16:46 76 15 92 10/28/19 16:45 68 20 101/62 97 10/28/19 16:31 70 18 96 10/28/19 16:30 73 24 119/69 96 10/28/19 16:16 62 15 98 10/28/19 16:15 73 19 118/73 98 10/28/19 16:01 63 14 91 10/28/19 16:00 65 19 117/65 90 10/28/19 15:46 66 19 95 10/28/19 15:45 63 19 117/63 95 10/28/19 15:31 72 23 142/82 H 94 10/28/19 15:30 74 20 94 10/28/19 15:16 72 21 94 10/28/19 15:15 66 21 113/72 95 10/28/19 15:01 70 25 H 93 10/28/19 15:00 72 27 H 125/75 92 10/28/19 14:59 71 27 H 115/59 L 10/28/19 14:45 71 18 90 10/28/19 14:39 37.3 C 65 20 136/71 92 10/28/19 14:37 74 18 136/71 90 10/28/19 14:34 73 15 91 10/28/19 12:47 70 21 94 10/28/19 12:45 63 23 109/92 89 L 10/28/19 12:43 60 22 124/68 90 10/28/19 12:34 36.7 C 60 27 H 124/68 88 L Coding Level of Care Code Critical Care 1st 30-74 mins Diagnoses Admitted to intensive care unit Z78.9 ST elevation (STEMI) myocardial infarction I21.3 Involved coronary artery: unspecified coronary artery Chest pain R07.9 Chest pain type: unspecified S/P PTCA (percutaneous transluminal coronary angioplasty) Z98.61 S/P drug eluting coronary stent placement Z95.5 Hyperlipidemia E78.5 Diabetes mellitus E11.9 Acid reflux disease K21.9 Time Spent (min) 35 (1) ST elevation (STEMI) myocardial infarction Involved coronary artery: unspecified coronary artery Qualified Code(s): I21.3 - ST elevation (STEMI) myocardial infarction of unspecified site (2) Chest pain Chest pain type: unspecified Qualified Code(s): R07.9 - Chest pain, unspecif ied
[2019-10-28] MEDS ORDERED: ALUMINUM/MAGNESIUM SUSP 30 ML UDC PO STA (19:17)
[2019-10-28] MEDS: METOPROLOL TARTRATE 25 MG TAB PO SCH (20:09)
[2019-10-28] MEDS: MoRPHine SULFATE 2 MG/ML CARP IV PRN ×2 (20:31→23:06)
[2019-10-28] MEDS: TICAGRELOR 90 MG TAB PO SCH (23:06)
[2019-10-29 03:47] LABS: Basophils # (auto) 0.01 K/uL (0-0.2); Basophils % (auto) 0.1 %; Eosinophils # (auto) 0.02 K/uL (0-0.5); Eosinophils % (auto) 0.1 %; Hematocrit (blood only) 36.4 % (37-47); Hemoglobin 12.6 g/dL (12.0-16.0); Immature Granulocytes # (auto) 0.04 K/uL (0.00-0.02); Immature Granulocytes % (auto) 0.3 %; Lymphocytes # (auto) 1.66 K/uL (1.2-3.4); Lymphocytes % (auto) 12.4 %; Mean Corpuscular Hemoglobin 32.1 pg (25-34); Mean Corpuscular Hgb Conc 34.6 g/dL (32-36); Mean Corpuscular Volume 92.6 fL (80-100); Mean Platelet Volume 9.2 fL (7.4-10.4); Monocytes % (auto) 8.2 %; Neutrophils % (auto) 78.9 %; Platelet Count 293 K/uL (130-400); RDW Standard Deviation 41.2 fL (36.4-46.3); Red Blood Count 3.93 M/uL (4.2-5.4); White Blood Count 13.43 K/uL (4.8-10.8)
[2019-10-29 04:04] LABS: BUN Creatinine Ratio 21.5 (10-20); Creatinine Clr Calc Pharmacy 63.2 ml/min; Est GFR (African American) 74.2; Potassium 4.2 mmol/L (3.5-5.1)
--- NOTE | 2019-10-29 05:13 | Electrocardiogram Report ---
Test Reason : Blood Pressure : / mmHG Vent. Rate : 061 BPM Atrial Rate : 061 BPM P-R Int : 156 ms QRS Dur : 082 ms QT Int : 436 ms P-R-T Axes : 060 -04 041 degrees QTc Int : 438 ms Normal sinus rhythm Anteroseptal infarct , possibly acute ST elevation consider anterior injury or acute infarct ACUTE CO / STEMI Abnormal ECG When compared with ECG of 08-OCT-2014 11:12, Anteroseptal infarct is now Present ST now depressed in Inferior leads ST elevation now present in Anterior leads Confirmed by Freddie Kearney ([id number]) on 10/29/2019 5:12:37 AM Referred By: REFERRED SELF Confirmed By:Freddie Kearney
[2019-10-29] MEDS: ASPIRIN 81 MG ECTAB PO SCH (07:50)
[2019-10-29] MEDS: PANTOprazole 40 MG TAB PO SCH (07:50)
[2019-10-29] MEDS: METOPROLOL TARTRATE 25 MG TAB PO SCH ×2 (07:50→19:57)
[2019-10-29] MEDS: ATORVASTATIN 40 MG TAB PO SCH (07:50)
[2019-10-29] MEDS: INSULIN ASPART 100 UNITS/ML 3 ML PEN SC SCH ×4 (07:51→21:04)
--- NOTE | 2019-10-29 08:17 | Critical Care Progress Note ---
Date of Service October 29, 2019 Assessment & Plan (1) Admitted to intensive care unit: Reason Critically Ill: Patient is a 69-year-old female with acute STEMI status post PTCA with NATALIYA x2 to the LAD requiring close hemodynamic monitoring status post coronary intervention. NEURO - * CAM ICU: NEGATIVE CARDIAC/VASCULAR - * Acute STEMI s/p PTCA w/ NATALIYA x2 to the LAD: * Trend troponins: Downtrending * AM Echo completed * ASCVD Rx per typical. * Chest pain resolved * RUE w/ edema. Patient remains w/ FROM, strength, and sensation throughout. No exam findings consist w/ compartment syndrome. Warm compresses as needed * Monitor on telemetry. RESPIRATORY - * Encourage smoking cessation. GI/NUTRITION - * AHA diet * GERD: continue home Rx. Maalox as needed. RENAL/LYTES - * No significant electrolyte derangements. - * No concerns at this time. ENDO - * DMII * BSGs per unit protocol. ISS --> gtt per unit policy. HEME - * Stable H&H ID - * No concerns for infection at this time. LINES/IV ACCESS - * PIVs x2 DVT PROPHYLAXIS - * Hold on Rx s/p interventional Rx. * SCDs Patient stable for downgrade out of ICU (2) ST elevation (STEMI) myocardial infarction: (3) Chest pain: (4) S/P PTCA (percutaneous transluminal coronary angioplasty): (5) S/P drug eluting coronary stent placement: (6) Hyperlipidemia: (7) Diabetes mellitus: (8) Acid reflux disease: Admission and Anticipated Discharge Date Admission Date: October 28, 2019 Subjective Patient feels improved, chest pain-free, no nausea, no vomiting. She has persistent discomfort of the right upper extremity, she reports it is better than yesterday and has decreased in the tension she feels in the arm. Review of Systems Review of Systems: As per HPI, normal range of motion of the right upper extremity no numbness or tingling, mild to moderate pain with palpation however she reports decreasing taunt feeling. Physical Exam Physical Exam: General: Alert. nontoxic. Skin: Warm, dry, Head: Atraumatic Ears, nose, mouth and throat: airway patent Cardiovascular: Normal peripheral perfusion Respiratory: no respiratory distress Gastrointestinal: Non distended Musculoskeletal: Ecchymoses at the right wrist and in the proximal forearm distal to the antecubital fossa. The compartment feels soft she does have tenderness to palpation in that area, I am able to palpate a ulnar pulse, capillary refill appears to be within normal limits. The right hand capillary refill is mildly decreased compared to the left, however, I still feel that this appears to be within normal limits. Results & Data Results & Data ([facility]) Vital Signs (Past 12 Hours) Vital Signs Pulse Resp BP Pulse Ox 10/29/19 06:00 61 15 123/67 91 10/29/19 05:01 61 13 92 10/29/19 05:00 62 12 98/51 L 92 10/29/19 04:01 61 15 92 10/29/19 04:00 61 18 113/71 92 10/29/19 03:01 61 13 92 10/29/19 03:00 61 15 90/59 L 92 10/29/19 02:01 62 13 92 10/29/19 02:00 61 14 112/65 91 10/29/19 01:01 63 14 91 10/29/19 01:00 63 14 115/68 90 Laboratory Results 10/29/19 10/29/19 10/29/19 Range/Units 07:42 03:32 03:32 WBC (4.8-10.8) K/uL RBC (4.2-5.4) M/uL Hgb (12.0-16.0) g/dL Hct (37-47) % MCV (80-100) fL MCH (25-34) pg MCHC (32-36) g/dL RDW Std Deviation (36.4-46.3) fL RDW Coeff of Rachelle (11.5-14.5) % Plt Count (130-400) K/uL MPV (7.4-10.4) fL Immature Gran % (Auto) % Neut % (Auto) % Lymph % (Auto) % [place] % (Auto) % Eos % (Auto) % Baso % (Auto) % Neut # (Auto) (1.4-6.5) K/uL Lymph # (Auto) (1.2-3.4) K/uL [place] # (Auto) (0.11-0.59) K/uL Eos # (Auto) (0-0.5) K/uL Baso # (Auto) (0-0.2) K/uL Immature Gran # (Auto) (0.00-0.02) K/uL PT (9.0-12.0) Seconds INR (0.9-1.1) APTT (21.0-31.0) Seconds PTT Ratio Activ Coag Time Kaolin (94-140) SECONDS Sodium 135 L (136-145) mmol/L Potassium 4.2 (3.5-5.1) mmol/L Chloride 99 (98-107) mmol/L Carbon Dioxide 30 (21-32) mmol/L Anion Gap 6.0 (3-11) BUN 20 H D (7-18) mg/dl Creatinine 0.92 (0.6-1.2) mg/dl Est Cr Clr Drug Dosing 63.2 ml/min Est GFR ( Amer) 74.2 Est GFR (Non-Af Amer) 64.0 BUN/Creatinine Ratio 21.5 H (10-20) Glucose 143 H (70-99) mg/dl POC Glucose 146 H (70-99) mg/dl Estimat Average Glucose Pending Hemoglobin A1c Pending Calcium 9.0 (8.5-10.1) mg/dl Total Bilirubin (0.2-1) mg/dl AST (15-37) U/L ALT (12-78) U/L Alkaline Phosphatase (45-117) U/L Troponin I (0-0.045) ng/ml Total Protein (6.4-8.2) gm/dl Albumin (3.4-5.0) gm/dl Globulin (2.5-4.0) gm/dl Albumin/Globulin Ratio (0.9-2) Triglycerides 134 (0-150) mg/dl Cholesterol 120 (0-200) mg/dl LDL Cholesterol, Calc 51 mg/dl VLDL Cholesterol, Calc 27 mg/dl HDL Cholesterol 42 mg/dl Cholesterol/HDL Ratio 3 Lipase (73-393) U/L Nasal Screen MRSA (PCR) (Negative) 10/29/19 10/29/19 10/28/19 Range/Units 03:32 03:32 20:41 WBC 13.43 H (4.8-10.8) K/uL RBC 3.93 L (4.2-5.4) M/uL Hgb 12.6 (12.0-16.0) g/dL Hct 36.4 L (37-47) % MCV 92.6 (80-100) fL MCH 32.1 (25-34) pg MCHC 34.6 (32-36) g/dL RDW Std Deviation 41.2 (36.4-46.3) fL RDW Coeff of Rachelle 12.0 (11.5-14.5) % Plt Count 293 (130-400) K/uL MPV 9.2 (7.4-10.4) fL Immature Gran % (Auto) 0.3 % Neut % (Auto) 78.9 % Lymph % (Auto) 12.4 % [place] % (Auto) 8.2 % Eos % (Auto) 0.1 % Baso % (Auto) 0.1 % Neut # (Auto) 10.60 H (1.4-6.5) K/uL Lymph # (Auto) 1.66 (1.2-3.4) K/uL [place] # (Auto) 1.10 H (0.11-0.59) K/uL Eos # (Auto) 0.02 (0-0.5) K/uL Baso # (Auto) 0.01 (0-0.2) K/uL Immature Gran # (Auto) 0.04 H (0.00-0.02) K/uL PT (9.0-12.0) Seconds INR (0.9-1.1) APTT (21.0-31.0) Seconds PTT Ratio Activ Coag Time Kaolin (94-140) SECONDS Sodium (136-145) mmol/L Potassium (3.5-5.1) mmol/L Chloride (98-107) mmol/L Carbon Dioxide (21-32) mmol/L Anion Gap (3-11) BUN (7-18) mg/dl Creatinine (0.6-1.2) mg/dl Est Cr Clr Drug Dosing ml/min Est GFR ( Amer) Est GFR (Non-Af Amer) BUN/Creatinine Ratio (10-20) Glucose (70-99) mg/dl POC Glucose (70-99) mg/dl Estimat Average Glucose Hemoglobin A1c Calcium (8.5-10.1) mg/dl Total Bilirubin (0.2-1) mg/dl AST (15-37) U/L ALT (12-78) U/L Alkaline Phosphatase (45-117) U/L Troponin I 150.000 H* > 200.000 H* (0-0.045) ng/ml Total Protein (6.4-8.2) gm/dl Albumin (3.4-5.0) gm/dl Globulin (2.5-4.0) gm/dl Albumin/Globulin Ratio (0.9-2) Triglycerides (0-150) mg/dl Cholesterol (0-200) mg/dl LDL Cholesterol, Calc mg/dl VLDL Cholesterol, Calc mg/dl HDL Cholesterol mg/dl Cholesterol/HDL Ratio Lipase (73-393) U/L Nasal Screen MRSA (PCR) (Negative) 10/28/19 10/28/19 10/28/19 Range/Units 20:05 16:46 14:45 WBC (4.8-10.8) K/uL RBC (4.2-5.4) M/uL Hgb (12.0-16.0) g/dL Hct (37-47) % MCV (80-100) fL MCH (25-34) pg MCHC (32-36) g/dL RDW Std Deviation (36.4-46.3) fL RDW Coeff of Rachelle (11.5-14.5) % Plt Count (130-400) K/uL MPV (7.4-10.4) fL Immature Gran % (Auto) % Neut % (Auto) % Lymph % (Auto) % [place] % (Auto) % Eos % (Auto) % Baso % (Auto) % Neut # (Auto) (1.4-6.5) K/uL Lymph # (Auto) (1.2-3.4) K/uL [place] # (Auto) (0.11-0.59) K/uL Eos # (Auto) (0-0.5) K/uL Baso # (Auto) (0-0.2) K/uL Immature Gran # (Auto) (0.00-0.02) K/uL PT (9.0-12.0) Seconds INR (0.9-1.1) APTT (21.0-31.0) Seconds PTT Ratio Activ Coag Time Kaolin (94-140) SECONDS Sodium (136-145) mmol/L Potassium (3.5-5.1) mmol/L Chloride (98-107) mmol/L Carbon Dioxide (21-32) mmol/L Anion Gap (3-11) BUN (7-18) mg/dl Creatinine (0.6-1.2) mg/dl Est Cr Clr Drug Dosing ml/min Est GFR ( Amer) Est GFR (Non-Af Amer) BUN/Creatinine Ratio (10-20) Glucose (70-99) mg/dl POC Glucose 164 H 190 H (70-99) mg/dl Estimat Average Glucose Hemoglobin A1c Calcium (8.5-10.1) mg/dl Total Bilirubin (0.2-1) mg/dl AST (15-37) U/L ALT (12-78) U/L Alkaline Phosphatase (45-117) U/L Troponin I (0-0.045) ng/ml Total Protein (6.4-8.2) gm/dl Albumin (3.4-5.0) gm/dl Globulin (2.5-4.0) gm/dl Albumin/Globulin Ratio (0.9-2) Triglycerides (0-150) mg/dl Cholesterol (0-200) mg/dl LDL Cholesterol, Calc mg/dl VLDL Cholesterol, Calc mg/dl HDL Cholesterol mg/dl Cholesterol/HDL Ratio Lipase (73-393) U/L Nasal Screen MRSA (PCR) Negative (Negative) 10/28/19 10/28/19 10/28/19 Range/Units 14:03 13:34 12:45 WBC (4.8-10.8) K/uL RBC (4.2-5.4) M/uL Hgb (12.0-16.0) g/dL Hct (37-47) % MCV (80-100) fL MCH (25-34) pg MCHC (32-36) g/dL RDW Std Deviation (36.4-46.3) fL RDW Coeff of Rachelle (11.5-14.5) % Plt Count (130-400) K/uL MPV (7.4-10.4) fL Immature Gran % (Auto) % Neut % (Auto) % Lymph % (Auto) % [place] % (Auto) % Eos % (Auto) % Baso % (Auto) % Neut # (Auto) (1.4-6.5) K/uL Lymph # (Auto) (1.2-3.4) K/uL [place] # (Auto) (0.11-0.59) K/uL Eos # (Auto) (0-0.5) K/uL Baso # (Auto) (0-0.2) K/uL Immature Gran # (Auto) (0.00-0.02) K/uL PT (9.0-12.0) Seconds INR (0.9-1.1) APTT (21.0-31.0) Seconds PTT Ratio Activ Coag Time Kaolin 252 H 219 H (94-140) SECONDS Sodium 137 (136-145) mmol/L Potassium 3.9 (3.5-5.1) mmol/L Chloride 101 (98-107) mmol/L Carbon Dioxide 26 (21-32) mmol/L Anion Gap 10.0 (3-11) BUN 12 (7-18) mg/dl Creatinine 0.85 (0.6-1.2) mg/dl Est Cr Clr Drug Dosing 68.4 ml/min Est GFR ( Amer) 81.6 Est GFR (Non-Af Amer) 70.4 BUN/Creatinine Ratio 13.7 (10-20) Glucose 187 H (70-99) mg/dl POC Glucose (70-99) mg/dl Estimat Average Glucose Hemoglobin A1c Calcium 9.6 (8.5-10.1) mg/dl Total Bilirubin 0.5 (0.2-1) mg/dl AST 24 (15-37) U/L ALT 39 (12-78) U/L Alkaline Phosphatase 98 (45-117) U/L Troponin I 0.272 H* (0-0.045) ng/ml Total Protein 7.7 (6.4-8.2) gm/dl Albumin 4.0 (3.4-5.0) gm/dl Globulin 3.7 (2.5-4.0) gm/dl Albumin/Globulin Ratio 1.1 (0.9-2) Triglycerides (0-150) mg/dl Cholesterol (0-200) mg/dl LDL Cholesterol, Calc mg/dl VLDL Cholesterol, Calc mg/dl HDL Cholesterol mg/dl Cholesterol/HDL Ratio Lipase 104 (73-393) U/L Nasal Screen MRSA (PCR) (Negative) 10/28/19 10/28/19 Range/Units 12:45 12:45 WBC 14.51 H (4.8-10.8) K/uL RBC 4.14 L (4.2-5.4) M/uL Hgb 13.6 (12.0-16.0) g/dL Hct 39.0 (37-47) % MCV 94.2 (80-100) fL MCH 32.9 (25-34) pg MCHC 34.9 (32-36) g/dL RDW Std Deviation 41.3 (36.4-46.3) fL RDW Coeff of Rachelle 12.1 (11.5-14.5) % Plt Count 326 (130-400) K/uL MPV 9.1 (7.4-10.4) fL Immature Gran % (Auto) 0.1 % Neut % (Auto) 85.9 % Lymph % (Auto) 10.1 % [place] % (Auto) 3.4 % Eos % (Auto) 0.4 % Baso % (Auto) 0.1 % Neut # (Auto) 12.45 H (1.4-6.5) K/uL Lymph # (Auto) 1.46 (1.2-3.4) K/uL [place] # (Auto) 0.50 (0.11-0.59) K/uL Eos # (Auto) 0.06 (0-0.5) K/uL Baso # (Auto) 0.02 (0-0.2) K/uL Immature Gran # (Auto) 0.02 (0.00-0.02) K/uL PT 10.8 (9.0-12.0) Seconds INR 1.0 (0.9-1.1) APTT 22.8 (21.0-31.0) Seconds PTT Ratio 0.8 Activ Coag Time Kaolin (94-140) SECONDS Sodium (136-145) mmol/L Potassium (3.5-5.1) mmol/L Chloride (98-107) mmol/L Carbon Dioxide (21-32) mmol/L Anion Gap (3-11) BUN (7-18) mg/dl Creatinine (0.6-1.2) mg/dl Est Cr Clr Drug Dosing ml/min Est GFR ( Amer) Est GFR (Non-Af Amer) BUN/Creatinine Ratio (10-20) Glucose (70-99) mg/dl POC Glucose (70-99) mg/dl Estimat Average Glucose Hemoglobin A1c Calcium (8.5-10.1) mg/dl Total Bilirubin (0.2-1) mg/dl AST (15-37) U/L ALT (12-78) U/L Alkaline Phosphatase (45-117) U/L Troponin I (0-0.045) ng/ml Total Protein (6.4-8.2) gm/dl Albumin (3.4-5.0) gm/dl Globulin (2.5-4.0) gm/dl Albumin/Globulin Ratio (0.9-2) Triglycerides (0-150) mg/dl Cholesterol (0-200) mg/dl LDL Cholesterol, Calc mg/dl VLDL Cholesterol, Calc mg/dl HDL Cholesterol mg/dl Cholesterol/HDL Ratio Lipase (73-393) U/L Nasal Screen MRSA (PCR) (Negative) Coding Level of Care Code 00629 Subseq Hosp Care Lvl 3 Diagnoses Admitted to intensive care unit Z78.9 ST elevation (STEMI) myocardial infarction I21.3 Involved coronary artery: unspecified coronary artery Chest pain R07.9 Chest pain type: unspecified S/P PTCA (percutaneous transluminal coronary angioplasty) Z98.61 S/P drug eluting coronary stent placement Z95.5 Hyperlipidemia E78.5 Diabetes mellitus E11.9 Acid reflux disease K21.9 (1) ST elevation (STEMI) myocardial infarction Involved coronary artery: unspecified coronary artery Qualified Code(s): I21.3 - ST elevation (STEMI) myocardial infarction of unspecified site (2) Chest pain Chest pain type: unspecified Qualified Code(s): R07.9 - Chest pain, unspecified
[2019-10-29] MEDS ORDERED: LOSARTAN POTASSIUM 50 MG TAB PO SCH (09:00)
[2019-10-29] MEDS: TICAGRELOR 90 MG TAB PO SCH ×2 (11:31→19:57)
--- NOTE | 2019-10-29 11:49 | Pharmacy Report ---
Pharmacy Glycemic Short Note 2 - Date of Service October 29, 2019 - Glycemic Short BSG Results (Last 24 hours): 10/28/19 10/28/19 10/28/19 12:45 16:46 20:05 Glucose 187 H POC Glucose 190 H 164 H 10/29/19 10/29/19 10/29/19 03:32 07:42 11:33 Glucose 143 H POC Glucose 146 H 116 H OUTPATIENT ANTIDIABETIC REGIMEN: * Metformin 1000 mg PO QAM + 500 mg PO QPM; Glipizide 5 mg PO BID Risk Factors for Insulin Resistance: * Recent Surgery * POD #1 s/p cardiac catheterization * Diet: * T2DM ASSESSMENT: 10/29/19 * Blood sugars at goal, will add Lantus HS for BSG > 140mg/dl * No further changes needed in glycemic regimen at this time 10/28/19 * 69 yo F admitted secondary to STEMI now s/p cardiac catheterization. Pharmacy is consulted for inpatient glycemic control. Patient maintained on oral anti- diabetic medications at home. * Pt is maintained on oral antidiabetic agents as an outpatient. Oral agents are not recommended for inpatient use d/t drug interactions, changing PO intake, and difficulty titrating for acute hyper/hypoglycemia. ADA recommends re- initiating outpatient oral agents 1-2 days prior to discharge if/when appropriate if they were held on admission. Will hold oral agents for admission and utilize SQ basal bolus insulin regimen which is the recommended regimen for inpatient glycemic control. * Admission BSG was 187 mg/dL. Dinner BSG was 190 mg/dL. Will start with a 0.1 unit/kg basal dose x 1 then start Novolog based on weight and stress of 2. Will not order any further basal following one time dose. PLAN FOR INPATIENT GLYCEMIC CONTROL: * Holding outpatient oral diabetes medications * Basal insulin * Lantus 10 units SQ HS for BSG 140mg/dl or greater * Bolus insulin * NovoLog per scale ACHS or Q6hrs while NPO * Goal Range: Low 110 mg/dL - High 140 mg/dL * Correction Factor: 25 mg/dL/unit * Nutritional / Prandial insulin per carb ratio of 1 unit per 9 grams CHO consumed
--- NOTE | 2019-10-29 12:45 | Hospitalist Progress Note ---
Date of Service October 29, 2019 Assessment & Plan (1) ST elevation (STEMI) myocardial infarction: Appreciate interventional cardiology management s/p x2 LAD NATALIYA As per cardiology Former smoker Hx of statin use with LDL 51 and HDL 42 ECHO pending Stable for transfer from ICU to [facility] (2) Hyperlipidemia: As above (3) Fibromyalgia: No home meds (4) Acid reflux disease: continue home meds (5) Diabetes mellitus: Aic pending Monitor (6) Localized swelling of right upper extremity: Related to heart cath Bruising and swelling noted, states swelling is better Kpad PRN Admission and Anticipated Discharge Date Admission Date: October 28, 2019 Subjective Pt's only concern today is pain to her R forearm. She states it is still with a lot of tightness. Swelling is less. No new bruising. No further chest pain. No SOB. Tolerating PO without issue. Pt denies fever, abd pain, n/v/c/d, LE pain or swelling. Review of Systems Review of Systems: Pertinent positives and negatives reviewed in HPI--all others negative Physical Exam Constitutional: WD/WN, vitals as above Eyes: normal visual white by confrontation and + anicteric sclerae Neck: normal visual inspection and trachea midline Respiratory: normal respiratory effort, lungs clear to auscultation Cardiovascular: Rate/Rhythm: regular rate and regular rhythm Extremities: + edema (R forearm) Gastrointestinal (Abdomen): Inspection/Auscultation: abdomen not distended Percussion/Palpation: abdomen soft; abdomen nontender Musculoskeletal: Head/Neck/Chest: normocephalic and head atraumatic negative for LE edema, peripheral pulses intact Skin: no rashes, warm and dry Trauma: + contusion (R superior proximal forearm/anticubital fossa) and + hematoma Neurologic: awake; not confused Speech / Cognition: normal speech Psychiatric: A+Ox3, euthymic affect Results & Data Results & Data ([facility]) Vital Signs (Past 12 Hours) Vital Signs Pulse Resp BP Pulse Ox 10/29/19 11:45 62 18 95 10/29/19 11:30 59 L 18 97 10/29/19 11:17 59 L 19 92/53 L 95 10/29/19 11:15 62 20 98 10/29/19 11:11 57 L 22 81/57 L 95 10/29/19 11:01 61 21 96 10/29/19 11:00 56 L 20 74/46 L 93 10/29/19 10:45 56 L 15 93 10/29/19 10:30 64 14 95 10/29/19 10:15 58 L 15 93 10/29/19 10:01 62 21 96 10/29/19 10:00 61 17 86/54 L 95 10/29/19 09:45 67 18 95 10/29/19 09:30 64 17 95 10/29/19 09:15 66 20 96 10/29/19 09:01 60 16 92 10/29/19 09:00 59 L 15 105/62 92 10/29/19 08:45 62 15 92 10/29/19 08:30 68 18 93 10/29/19 08:15 64 17 92 10/29/19 08:01 68 20 93 10/29/19 08:00 71 21 86/56 L 93 10/29/19 07:53 65 18 109/60 93 10/29/19 07:45 70 13 95 10/29/19 07:30 66 27 H 95 10/29/19 07:15 67 23 97 10/29/19 07:00 120 H 20 10/29/19 06:45 65 19 93 10/29/19 06:30 60 12 93 10/29/19 06:15 70 17 95 10/29/19 06:01 62 13 92 10/29/19 06:00 61 15 123/67 91 10/29/19 05:01 61 13 92 10/29/19 05:00 62 12 98/51 L 92 10/29/19 04:01 61 15 92 10/29/19 04:00 61 18 113/71 92 10/29/19 03:01 61 13 92 10/29/19 03:00 61 15 90/59 L 92 10/29/19 02:01 62 13 92 10/29/19 02:00 61 14 112/65 91 10/29/19 01:01 63 14 91 10/29/19 01:00 63 14 115/68 90 PG Care Time/CCT Total # of Minutes Spent Total Time Spent with Patient: Total time spent is greater than 50% in coordination of care (as documented) at patient's floor/unit and/or counseling patient: Coding Level of Care Code 63158 Subseq Hosp Care Lvl [address] elevation (STEMI) myocardial infarction I21.3 Involved coronary artery: unspecified coronary artery Hyperlipidemia E78.5 Fibromyalgia M79.7 Acid reflux disease K21.9 Diabetes mellitus E11.9 Localized swelling of right upper extremity R22.31 (1) ST elevation (STEMI) myocardial infarction Involved coronary artery: unspecified coronary artery Qualified Code(s): I21.3 - ST elevation (STEMI) myocardial infarction of unspecified site
--- NOTE | 2019-10-29 13:44 | Cardiology Progress Note ---
Date of Service October 29, 2019 Assessment & Plan (1) ST elevation (STEMI) myocardial infarction: (2) S/P drug eluting coronary stent placement: (3) CAD (coronary artery disease): (4) Hyperlipidemia: (5) Hypertension: (6) Ischemic cardiomyopathy: (7) Paroxysmal ventricular tachycardia: ASSESSMENT/PLAN: 1. LAD STEMI s/p PCI: No angina. Volume status appears reasonable. Continue aspirin 81 mg daily. Continue Brilinta for at least 1 year. Continue high- intensity statin therapy and beta-jose manuel therapy. Will hold losartan currently due to hypotension but resume if blood pressure allows as she takes this chronically at home. May need to reduce the dose for now. Cardiac rehabilitation recommended and discussed. She lives approximately 40 minutes away from the hospital but may be interested in a home program. 2. CAD: Underwent PCI of proximal and mid LAD with angioplasty of D1 ostium. Continue medical therapy and risk factor modification. 3. Hypertension: Has a history of hypertension but has been hypotensive this morning. She is asymptomatic however. Recommend holding losartan for now but she did received today's dose. Will reassess tomorrow. Continue beta-jose manuel if tolerated. 4. Paroxysmal ventricular tachycardia: Not unexpected within the first 48 hours of VT. Has not had any VT today. Continue beta-jose manuel as tolerated. 5. Dyslipidemia: Continue high-intensity statin therapy. 6. Ischemic cardiomyopathy: Formal review of echo is pending. LV systolic function appeared mild to moderately reduced on preliminary inspection. The repeat echo in the future as an outpatient. 7. Disposition: Cardiology will continue to follow. She can be transferred out of the ICU from a cardiac perspective. Admission and Anticipated Discharge Date Admission Date: October 28, 2019 Subjective She was seen earlier this morning. She did have some chest discomfort overnight that was transient. When she was seen this morning, she had no further chest pain. She denies shortness of breath, syncope, near-syncope, palpitations, or edema. She has not had any bleeding from her right femoral catheterization site. Her right forearm pain has improved. She developed ecchymosis, as expected. Her daughter was present at the bedside. Review of systems: As above. Physical Exam Physical Exam: Gen.: No acute distress. Alert and oriented. HEENT: Anicteric sclera. Neck: No JVD. Cardiac: Regular. Normal S1-S2. No murmurs, rubs, or gallops. Pulmonary: Clear to auscultation bilaterally without wheezes, rales, or rhonchi. Abdomen: Soft, nontender, nondistended, with normoactive bowel sounds. No bruits noted. Extremities: Right radial cath site is clean, dry, and intact. There is ecchymosis throughout the right forearm and the right forearm is larger in circumference compared to the left. It is mildly tender but soft. 1+ right radial pulse. Right femoral catheterization site is clean, dry, and intact without erythema, discharge, or hematoma. Trace bilateral lower extremity edema. No cyanosis. Psychiatric: Affect appears appropriate. Results & Data ([facility]) Vital Signs (Past 12 Hours) Vital Signs Pulse Resp BP Pulse Ox 10/29/19 13:18 84 10/29/19 13:00 90 19 89/58 L 92 10/29/19 12:45 84 18 92 10/29/19 12:30 90 24 94 10/29/19 12:15 93 H 18 92 10/29/19 12:01 94 10/29/19 11:45 62 18 95 10/29/19 11:30 59 L 18 97 10/29/19 11:17 59 L 19 92/53 L 95 10/29/19 11:15 62 20 98 10/29/19 11:11 57 L 22 81/57 L 95 10/29/19 11:01 61 21 96 10/29/19 11:00 56 L 20 74/46 L 93 10/29/19 10:45 56 L 15 93 10/29/19 10:30 64 14 95 10/29/19 10:15 58 L 15 93 10/29/19 10:01 62 21 96 10/29/19 10:00 61 17 86/54 L 95 10/29/19 09:45 67 18 95 10/29/19 09:30 64 17 95 10/29/19 09:15 66 20 96 10/29/19 09:01 60 16 92 10/29/19 09:00 59 L 15 105/62 92 10/29/19 08:45 62 15 92 10/29/19 08:30 68 18 93 10/29/19 08:15 64 17 92 10/29/19 08:01 68 20 93 10/29/19 08:00 71 21 86/56 L 93 09/06/20 07:53 65 18 109/60 93 10/29/19 07:45 70 13 95 10/29/19 07:30 66 27 H 95 10/29/19 07:15 67 23 97 10/29/19 07:00 120 H 20 10/29/19 06:45 65 19 93 10/29/19 06:30 60 12 93 10/29/19 06:15 70 17 95 10/29/19 06:01 62 13 92 10/29/19 06:00 61 15 123/67 91 10/29/19 05:01 61 13 92 10/29/19 05:00 62 12 98/51 L 92 10/29/19 04:01 61 15 92 10/29/19 04:00 61 18 113/71 92 10/29/19 03:01 61 13 92 10/29/19 03:00 61 15 90/59 L 92 10/29/19 02:01 62 13 92 10/29/19 02:00 61 14 112/65 91 Intake & Output 10/27/19 10/28/19 10/29/19 10/30/19 06:59 06:59 06:59 06:59 Intake Total 880 / 880 Output Total 1000 / 1000 Balance -120 / -120 Weight 89 kg Laboratory Results Laboratory Results - last 24 hr 10/28/19 10/28/19 10/28/19 13:34 14:03 14:45 WBC RBC Hgb Hct MCV MCH MCHC RDW Std Deviation RDW Coeff of Rachelle Plt Count MPV Immature Gran % (Auto) Neut % (Auto) Lymph % (Auto) [place] % (Auto) Eos % (Auto) Baso % (Auto) Neut # (Auto) Lymph # (Auto) [place] # (Auto) Eos # (Auto) Baso # (Auto) Immature Gran # (Auto) Activ Coag Time Kaolin 219 H 252 H Sodium Potassium Chloride Carbon Dioxide Anion Gap BUN Creatinine Est Cr Clr Drug Dosing Est GFR ( Amer) Est GFR (Non-Af Amer) BUN/Creatinine Ratio Glucose POC Glucose Estimat Average Glucose Hemoglobin A1c Calcium Troponin I Triglycerides Cholesterol LDL Cholesterol, Calc VLDL Cholesterol, Calc HDL Cholesterol Cholesterol/HDL Ratio Nasal Screen MRSA (PCR) Negative 10/28/19 10/28/19 10/28/19 16:46 20:05 20:41 WBC RBC Hgb Hct MCV MCH MCHC RDW Std Deviation RDW Coeff of Rachelle Plt Count MPV Immature Gran % (Auto) Neut % (Auto) Lymph % (Auto) [place] % (Auto) Eos % (Auto) Baso % (Auto) Neut # (Auto) Lymph # (Auto) [place] # (Auto) Eos # (Auto) Baso # (Auto) Immature Gran # (Auto) Activ Coag Time Kaolin Sodium Potassium Chloride Carbon Dioxide Anion Gap BUN Creatinine Est Cr Clr Drug Dosing Est GFR ( Amer) Est GFR (Non-Af Amer) BUN/Creatinine Ratio Glucose POC Glucose 190 H 164 H Estimat Average Glucose Hemoglobin A1c Calcium Troponin I > 200.000 H* Triglycerides Cholesterol LDL Cholesterol, Calc VLDL Cholesterol, Calc HDL Cholesterol Cholesterol/HDL Ratio Nasal Screen MRSA (PCR) 10/29/19 10/29/19 10/29/19 03:32 03:32 03:32 WBC 13.43 H RBC 3.93 L Hgb 12.6 Hct 36.4 L MCV 92.6 MCH 32.1 MCHC 34.6 RDW Std Deviation 41.2 RDW Coeff of Rachelle 12.0 Plt Count 293 MPV 9.2 Immature Gran % (Auto) 0.3 Neut % (Auto) 78.9 Lymph % (Auto) 12.4 [place] % (Auto) 8.2 Eos % (Auto) 0.1 Baso % (Auto) 0.1 Neut # (Auto) 10.60 H Lymph # (Auto) 1.66 [place] # (Auto) 1.10 H Eos # (Auto) 0.02 Baso # (Auto) 0.01 Immature Gran # (Auto) 0.04 H Activ Coag Time Kaolin Sodium 135 L Potassium 4.2 Chloride 99 Carbon Dioxide 30 Anion Gap 6.0 BUN 20 H D Creatinine 0.92 Est Cr Clr Drug Dosing 63.2 Est GFR ( Amer) 74.2 Est GFR (Non-Af Amer) 64.0 BUN/Creatinine Ratio 21.5 H Glucose 143 H POC Glucose Estimat Average Glucose Hemoglobin A1c Calcium 9.0 Troponin I 150.000 H* Triglycerides 134 Cholesterol 120 LDL Cholesterol, Calc 51 VLDL Cholesterol, Calc 27 HDL Cholesterol 42 Cholesterol/HDL Ratio 3 Nasal Screen MRSA (PCR) 10/29/19 10/29/19 10/29/19 03:32 07:42 11:33 WBC RBC Hgb Hct MCV MCH MCHC RDW Std Deviation RDW Coeff of Rachelle Plt Count MPV Immature Gran % (Auto) Neut % (Auto) Lymph % (Auto) [place] % (Auto) Eos % (Auto) Baso % (Auto) Neut # (Auto) Lymph # (Auto) [place] # (Auto) Eos # (Auto) Baso # (Auto) Immature Gran # (Auto) Activ Coag Time Kaolin Sodium Potassium Chloride Carbon Dioxide Anion Gap BUN Creatinine Est Cr Clr Drug Dosing Est GFR ( Amer) Est GFR (Non-Af Amer) BUN/Creatinine Ratio Glucose POC Glucose 146 H 116 H Estimat Average Glucose Pending Hemoglobin A1c Pending Calcium Troponin I Triglycerides Cholesterol LDL Cholesterol, Calc VLDL Cholesterol, Calc HDL Cholesterol Cholesterol/HDL Ratio Nasal Screen MRSA (PCR) Diagnostic Findings Telemetry personally review: Sinus rhythm with 2 episodes of nonsustained ventricular tachycardia yesterday. Cardiac catheterization images reviewed from 10/28/2019: Proximal LAD 100%, undergoing 3 x 26 in 2.5 x 12 mm johnathon NATALIYA, proximally post dilated with 4 mm NC. Ostial D1 angioplasty with 2 mm balloon. Echo 10/29/2019 personally reviewed: Preliminary review demonstrated at most moderately reduced LV systolic function. LAD wall motion abnormality noted. No severe valvular stenosis or regurgitation. Formal review to follow. Medications Administered Current Inpatient Medications Acetaminophen (Acetaminophen 325 Mg Tab) 650 mg PO Q4H PRN PRN Reason: MILD Pain (Scale 1,2,3) Stop: 11/27/19 14:29 Aspirin (Aspirin 81 Mg Ectab) 81 mg PO [facility] Stop: 11/28/19 08:59 Last Admin: 10/29/19 07:50 Dose: 81 mg Documented by: Atorvastatin Calcium (Atorvastatin 40 Mg Tab) 80 mg PO [facility] Stop: 11/28/19 08:59 Last Admin: 10/29/19 07:50 Dose: 80 mg Documented by: Dextrose (Dextrose 50% 50 Ml Syringe) 25 - 50 ml IV UD PRN; Protocol PRN Reason: Hypoglycemia Protocol Stop: 11/27/19 15:44 Glucagon (Glucagon For Inj 1 Mg Vial) 1 mg IM UD PRN; Protocol PRN Reason: Hypoglycemia Protocol Stop: 11/27/19 15:44 Glucose (Glucose 40% Gel 15 Gm Tube) 15 - 30 gm PO UD PRN; Protocol PRN Reason: Hypoglycemia Protocol Stop: 11/27/19 15:44 Glucose (Glucose 10 Tabs/Tube) 4 - 8 tabs PO UD PRN; Protocol PRN Reason: Hypoglycemia Protocol Stop: 11/27/19 15:44 Insulin Aspart (Insulin Aspart 100 Units/Ml 3 Ml Pen) 0 units SC ACHS [facility]; Protocol Stop: 11/27/19 16:29 Last Admin: 10/29/19 12:06 Dose: 6 units Documented by: Insulin Glargine (Insulin Glargine Solostar 100 Units/Ml 3 Ml Pen) 0 units SC HS [facility]; Protocol Stop: 11/28/19 20:59 Losartan Potassium (Losartan Potassium 50 Mg Tab) 50 mg PO DAILY [facility] Stop: 11/28/19 08:59 Last Admin: 10/29/19 07:50 Dose: 50 mg Documented by: Metoprolol Tartrate (Metoprolol Tartrate 25 Mg Tab) 25 mg PO BID [facility] Stop: 11/27/19 20:59 Last Admin: 10/29/19 07:50 Dose: 25 mg Documented by: Miscellaneous (Icu Protocol For Hyperglycemia) 1 ea N/A PRN PRN; Protocol PRN Reason: Hyperglycemia Protocol Stop: 10/30/19 14:34 Miscellaneous (Carbohydrates For Hypoglycemia ) 15 - 30 gm PO UD PRN PRN Reason: Hypoglycemia Treatment Stop: 11/27/19 15:44 Miscellaneous Information (Pharmacy Glycemic Mgmt Consult) 1 ea N/A UD PRN PRN Reason: Consult Stop: 11/27/19 15:26 Morphine Sulfate (Morphine Sulfate 2 Mg/Ml [place]) 2 mg IV Q2H PRN PRN Reason: Pain Stop: 11/11/19 14:29 Last Admin: 10/28/19 23:06 Dose: 2 mg Documented by: Nitroglycerin (Nitroglycerin Sl 0.4 Mg/Tab Tab) 0.4 mg SL PRN PRN PRN Reason: Chest Pain Stop: 11/27/19 14:29 Ondansetron HCl (Ondansetron Inj 2 Mg/Ml 2 Ml Vial) 4 mg IV Q6H PRN PRN Reason: Nausea And Vomiting Stop: 11/27/19 14:29 Pantoprazole Sodium (Pantoprazole 40 Mg Tab) 40 mg PO DAILY [facility] Stop: 11/28/19 08:59 Last Admin: 10/29/19 07:50 Dose: 40 mg Documented by: Ticagrelor (Ticagrelor 90 Mg Tab) 90 mg PO BID [facility] Stop: 11/28/19 00:32 Last Admin: 10/29/19 11:31 Dose: 90 mg Documented by: PG Care Time/CCT Total # of Minutes Spent Total Time Spent with Patient: Total time spent is greater than 50% in coordination of care (as documented) at patient's floor/unit and/or counseling patient: Coding Level of Care Code 29209 Subseq Hosp Care Lvl [address] elevation (STEMI) myocardial infarction I21.3 Involved coronary artery: unspecified coronary artery S/P drug eluting coronary stent placement Z95.5 CAD (coronary artery disease) I25.10 Hyperlipidemia E78.5 Hypertension I10 Ischemic cardiomyopathy I25.5 Paroxysmal ventricular tachycardia I47.2 (1) ST elevation (STEMI) myocardial infarction Involved coronary artery: unspecified coronary artery Qualified Code(s): I21.3 - ST elevation (STEMI) myocardial infarction of unspecified site
[2019-10-29] MEDS ORDERED: HEPARIN SODIUM/DEXTROSE 25,000 UNITS/500 ML BAG IV SCH (14:45)
[2019-10-29] MEDS ORDERED: HEPARIN IV BOLUS 5,000 UNITS in SYRINGE 0 ML IV ONE (14:45)
--- NOTE | 2019-10-29 15:51 | XCELERA ---
[id number]
[2019-10-29] MEDS ORDERED: INSULIN GLARGINE SOLOSTAR 100 UNITS/ML 3 ML PEN SC SCH (21:00)
[2019-10-30 06:54] LABS: Calcium 9.1 mg/dl (8.5-10.1); Creatinine Clr Calc Pharmacy 62.8 ml/min; Est GFR (African American) 77.2; Est GFR (Non-African American) 66.6
--- NOTE | 2019-10-30 06:59 | Electrocardiogram Report ---
Test Reason : Blood Pressure : / mmHG Vent. Rate : 094 BPM Atrial Rate : 108 BPM P-R Int : 000 ms QRS Dur : 078 ms QT Int : 394 ms P-R-T Axes : 000 070 -44 degrees QTc Int : 492 ms Poor data quality, interpretation may be adversely affected Atrial fibrillation with premature ventricular or aberrantly conducted complexes Anterior infarct Inferior infarct , age undetermined Abnormal ECG When compared with ECG of 28-OCT-2019 12:39, Atrial fibrillation has replaced Sinus rhythm Vent. rate has increased BY 33 BPM Inferior infarct is now Present Serial changes of evolving Anterior infarct Present Confirmed by Freddie Kearney ([id number]) on 10/30/2019 6:59:24 AM Referred By: REFERRED SELF Confirmed By:Freddie Kearney
--- NOTE | 2019-10-30 07:05 | Electrocardiogram Report ---
Test Reason : Blood Pressure : / mmHG Vent. Rate : 066 BPM Atrial Rate : 066 BPM P-R Int : 160 ms QRS Dur : 084 ms QT Int : 466 ms P-R-T Axes : 053 -29 089 degrees QTc Int : 488 ms Normal sinus rhythm Anterior infarct Abnormal ECG When compared with ECG of 29-OCT-2019 13:55, Sinus rhythm has replaced Atrial fibrillation QRS axis Shifted left Criteria for Inferior infarct are no longer Present Confirmed by Freddie Kearney ([id number]) on 10/30/2019 7:04:43 AM Referred By: REFERRED SELF Confirmed By:Freddie Kearney
[2019-10-30 07:21] LABS: Estimated Average Glucose 171 mg/dl; Hemoglobin A1C 7.6 % (4.5-5.6)
[2019-10-30] MEDS: INSULIN ASPART 100 UNITS/ML 3 ML PEN SC SCH ×2 (07:54→11:46)
[2019-10-30] MEDS: ASPIRIN 81 MG ECTAB PO SCH (08:29)
[2019-10-30] MEDS: ATORVASTATIN 40 MG TAB PO SCH (08:29)
[2019-10-30] MEDS: TICAGRELOR 90 MG TAB PO SCH (08:29)
[2019-10-30] MEDS: PANTOprazole 40 MG TAB PO SCH (08:29)
[2019-10-30] MEDS ORDERED: METOPROLOL TARTRATE 25 MG TAB PO SCH ×2 (09:00→13:30)
--- NOTE | 2019-10-30 11:10 | Cardiology Progress Note ---
Date of Service October 30, 2019 Assessment & Plan (1) ST elevation (STEMI) myocardial infarction: (2) S/P drug eluting coronary stent placement: (3) CAD (coronary artery disease): (4) Hyperlipidemia: (5) Hypertension: (6) Ischemic cardiomyopathy: (7) Paroxysmal atrial fibrillation: (8) Paroxysmal ventricular tachycardia: ASSESSMENT/PLAN: 1. LAD STEMI s/p PCI: No angina. She appears euvolemic. Continue aspirin 81 mg daily. Continue Brilinta for at least 1 year. Anti-platelet therapy discussed with her in detail. Continue high-intensity statin therapy and beta- jose manuel therapy. She took losartan at home but it was held during this hospital stay due to persistent hypotension. Would try to resume MYLA-inhibitor or ARB in the future as an outpatient if blood pressure tolerates. Cardiac rehabilitation recommended and discussed. She lives approximately 40 minutes away from the hospital but expressed interest in a home-based program. 2. CAD: Underwent PCI of proximal and mid LAD with angioplasty of D1 ostium. Continue medical therapy and risk factor modification. 3. Hypertension: She was persistently hypotensive yesterday after receiving losartan and a small dose of beta-jose manuel. Continue metoprolol and resume losartan or low-dose MYLA-inhibitor if blood pressure allows, which may occur as an outpatient. 4. Paroxysmal ventricular tachycardia: Not unexpected within the first 48 hours of AL. No VT the left past 2 days. Continue beta-jose manuel as tolerated. 5. Dyslipidemia: Continue high-intensity statin therapy. 6. Ischemic cardiomyopathy: Reduced despite LAD wall motion abnormalities. Echo can be repeated as an outpatient. She appears euvolemic. 7. Paroxysmal atrial fibrillation: She had less than 3 hours of AFib on 10/29/2019 and was completely asymptomatic. Heart rate was mildly elevated compared to baseline. Continue beta-jose manuel. Consider outpatient monitoring to determine if this is a recurrent issue to help determine the need for anticoagulation for stroke risk reduction. Would not start anticoagulation at this time given that this occurred within the first 48 hours of her STEMI and was very short lived. 8. Disposition: She can be discharged home from a cardiac perspective with follow-up in 1-[address] Gray' office. Patient care communicated with Dr. Miller of the primary hospitalist service. Recommend p.r.n. nitroglycerin on discharge. Admission and Anticipated Discharge Date Admission Date: October 28, 2019 Subjective She feels well today. She denies chest pain, shortness of breath, syncope, near-syncope, palpitations, edema, or bleeding. Her right arm pain continues but is slowly improving. She had an episode of atrial fibrillation yesterday for approximately 2 hours and 40 minutes before spontaneously converting. She was completely asymptomatic throughout. I was notified by nursing staff that this occurred when they diagnosed at based off of telemetry. Heparin drip was ordered but she spontaneously converted before the heparin drip was initiated and therefore was canceled. Her was present at the bedside. Review of systems: As above. Physical Exam Physical Exam: Gen.: No acute distress. Alert and oriented. HEENT: Anicteric sclera. Neck: No JVD. Cardiac: Regular. Normal S1-S2. No murmurs, rubs, or gallops. Pulmonary: Clear to auscultation bilaterally without wheezes, rales, or rhonchi. Abdomen: Soft, nontender, nondistended, with normoactive bowel sounds. No bruits noted. Extremities: Right radial cath site is clean, dry, and intact. There is ecchymosis throughout the right forearm and the right forearm is larger in circumference compared to the left. It is mildly tender but soft. 1+ right radial pulse. Right femoral catheterization site is clean, dry, and intact without erythema, discharge, or hematoma. No significant lower extremity edema. No cyanosis. Psychiatric: Affect appears appropriate. Results & Data ([facility]) Vital Signs (Past 12 Hours) Vital Signs Temp Pulse Pulse Resp BP Pulse Ox 10/30/19 07:35 36.7 C 69 18 100/69 96 10/30/19 07:20 58 L 10/30/19 03:58 36.6 C 69 20 94/59 L 99 10/30/19 00:10 36.8 C 65 16 98/60 L 97 Intake & Output 10/28/19 10/29/19 10/30/19 10/31/19 06:59 06:59 06:59 06:59 Intake Total 880 / 880 100 / 100 Output Total 1000 / 1000 Balance -120 / -120 100 / 100 Weight 89 kg 82.3 kg Laboratory Results Laboratory Results - last 24 hr 10/29/19 10/29/19 10/29/19 03:32 03:32 03:32 WBC 13.43 H RBC 3.93 L Hgb 12.6 Hct 36.4 L MCV 92.6 MCH 32.1 MCHC 34.6 RDW Std Deviation 41.2 RDW Coeff of Rachelle 12.0 Plt Count 293 MPV 9.2 Immature Gran % (Auto) 0.3 Neut % (Auto) 78.9 Lymph % (Auto) 12.4 [place] % (Auto) 8.2 Eos % (Auto) 0.1 Baso % (Auto) 0.1 Neut # (Auto) 10.60 H Lymph # (Auto) 1.66 [place] # (Auto) 1.10 H Eos # (Auto) 0.02 Baso # (Auto) 0.01 Immature Gran # (Auto) 0.04 H Sodium 135 L Potassium 4.2 Chloride 99 Carbon Dioxide 30 Anion Gap 6.0 BUN 20 H D Creatinine 0.92 Est Cr Clr Drug Dosing 63.2 Est GFR ( Amer) 74.2 Est GFR (Non-Af Amer) 64.0 BUN/Creatinine Ratio 21.5 H Glucose 143 H POC Glucose Estimat Average Glucose 171 Hemoglobin A1c 7.6 H Calcium 9.0 Triglycerides 134 Cholesterol 120 LDL Cholesterol, Calc 51 VLDL Cholesterol, Calc 27 HDL Cholesterol 42 Cholesterol/HDL Ratio 3 10/29/19 10/29/19 10/29/19 11:33 16:01 20:58 WBC RBC Hgb Hct MCV MCH MCHC RDW Std Deviation RDW Coeff of Rachelle Plt Count MPV Immature Gran % (Auto) Neut % (Auto) Lymph % (Auto) [place] % (Auto) Eos % (Auto) Baso % (Auto) Neut # (Auto) Lymph # (Auto) [place] # (Auto) Eos # (Auto) Baso # (Auto) Immature Gran # (Auto) Sodium Potassium Chloride Carbon Dioxide Anion Gap BUN Creatinine Est Cr Clr Drug Dosing Est GFR ( Amer) Est GFR (Non-Af Amer) BUN/Creatinine Ratio Glucose POC Glucose 116 H 123 H 172 H Estimat Average Glucose Hemoglobin A1c Calcium Triglycerides Cholesterol LDL Cholesterol, Calc VLDL Cholesterol, Calc HDL Cholesterol Cholesterol/HDL Ratio 10/30/19 10/30/19 05:51 07:01 WBC RBC Hgb Hct MCV MCH MCHC RDW Std Deviation RDW Coeff of Rachelle Plt Count MPV Immature Gran % (Auto) Neut % (Auto) Lymph % (Auto) [place] % (Auto) Eos % (Auto) Baso % (Auto) Neut # (Auto) Lymph # (Auto) [place] # (Auto) Eos # (Auto) Baso # (Auto) Immature Gran # (Auto) Sodium 139 Potassium 4.0 Chloride 103 Carbon Dioxide 29 Anion Gap 8.0 BUN 22 H Creatinine 0.89 Est Cr Clr Drug Dosing 62.8 Est GFR ( Amer) 77.2 Est GFR (Non-Af Amer) 66.6 BUN/Creatinine Ratio 25.0 H Glucose 127 H POC Glucose 141 H Estimat Average Glucose Hemoglobin A1c Calcium 9.1 Triglycerides Cholesterol LDL Cholesterol, Calc VLDL Cholesterol, Calc HDL Cholesterol Cholesterol/HDL Ratio Diagnostic Findings Telemetry personally reviewed: Sinus rhythm. She did have atrial fibrillation on 10/29/2019 from approximately 12 noon to 1442 before spontaneously converting to sinus. ECGs personally reviewed: ECG 10/29/2019 at 3:23 p.m.: Sinus rhythm 66 beats per minute. Anterior infarct. ECG 10/29/2019 at 1:55 p.m.: AFib 94 beats per minute. PVCs versus aberrantly conducted complexes. Inferior infarct. Medications Administered Current Inpatient Medications Acetaminophen (Acetaminophen 325 Mg Tab) 650 mg PO Q4H PRN PRN Reason: MILD Pain (Scale 1,2,3) Stop: 11/27/19 14:29 Aspirin (Aspirin 81 Mg Ectab) 81 mg PO [facility] Stop: 11/28/19 08:59 Last Admin: 10/30/19 08:29 Dose: 81 mg Documented by: Atorvastatin Calcium (Atorvastatin 40 Mg Tab) 80 mg PO [facility] Stop: 11/28/19 08:59 Last Admin: 10/30/19 08:29 Dose: 80 mg Documented by: Dextrose (Dextrose 50% 50 Ml Syringe) 25 - 50 ml IV UD PRN; Protocol PRN Reason: Hypoglycemia Protocol Stop: 11/27/19 15:44 Glucagon (Glucagon For Inj 1 Mg Vial) 1 mg IM UD PRN; Protocol PRN Reason: Hypoglycemia Protocol Stop: 11/27/19 15:44 Glucose (Glucose 40% Gel 15 Gm Tube) 15 - 30 gm PO UD PRN; Protocol PRN Reason: Hypoglycemia Protocol Stop: 11/27/19 15:44 Glucose (Glucose 10 Tabs/Tube) 4 - 8 tabs PO UD PRN; Protocol PRN Reason: Hypoglycemia Protocol Stop: 11/27/19 15:44 Insulin Aspart (Insulin Aspart 100 Units/Ml 3 Ml Pen) 0 units SC ACHS [facility]; Protocol Stop: 11/27/19 16:29 Last Admin: 10/30/19 07:54 Dose: 8 units Documented by: Insulin Glargine (Insulin Glargine Solostar 100 Units/Ml 3 Ml Pen) 10 units SC HS [facility]; Protocol Stop: 11/29/19 20:59 Losartan Potassium (Losartan Potassium 50 Mg Tab) 50 mg PO DAILY [facility] --- on HOLD Stop: 11/28/19 08:59 Last Admin: 10/29/19 07:50 Dose: 50 mg Documented by: Metoprolol Tartrate (Metoprolol Tartrate 25 Mg Tab) 12.5 mg PO BID [facility] Stop: 11/29/19 08:59 Last Admin: 10/30/19 08:30 Dose: 12.5 mg Documented by: Miscellaneous (Carbohydrates For Hypoglycemia ) 15 - 30 gm PO UD PRN PRN Reason: Hypoglycemia Treatment Stop: 11/27/19 15:44 Miscellaneous Information (Pharmacy Glycemic Mgmt Consult) 1 ea N/A UD PRN PRN Reason: Consult Stop: 11/27/19 15:26 Morphine Sulfate (Morphine Sulfate 2 Mg/Ml Carp) 2 mg IV Q2H PRN PRN Reason: Pain Stop: 11/11/19 14:29 Last Admin: 10/28/19 23:06 Dose: 2 mg Documented by: Nitroglycerin (Nitroglycerin Sl 0.4 Mg/Tab Tab) 0.4 mg SL PRN PRN PRN Reason: Chest Pain Stop: 11/27/19 14:29 Ondansetron HCl (Ondansetron Inj 2 Mg/Ml 2 Ml Vial) 4 mg IV Q6H PRN PRN Reason: Nausea And Vomiting Stop: 11/27/19 14:29 Pantoprazole Sodium (Pantoprazole 40 Mg Tab) 40 mg PO DAILY [facility] Stop: 11/28/19 08:59 Last Admin: 10/30/19 08:29 Dose: 40 mg Documented by: Ticagrelor (Ticagrelor 90 Mg Tab) 90 mg PO BID [facility] Stop: 11/28/19 00:32 Last Admin: 10/30/19 08:29 Dose: 90 mg Documented by: PG Care Time/CCT Total # of Minutes Spent Total Time Spent with Patient: Total time spent is greater than 50% in coordination of care (as documented) at patient's floor/unit and/or counseling patient: Coding Level of Care Code 39251 Subseq Hosp Care Lvl [address] elevation (STEMI) myocardial infarction I21.3 Involved coronary artery: unspecified coronary artery S/P drug eluting coronary stent placement Z95.5 CAD (coronary artery disease) I25.10 Hyperlipidemia E78.5 Hypertension I10 Ischemic cardiomyopathy I25.5 Paroxysmal atrial fibrillation I48.0 Paroxysmal ventricular tachycardia I47.2 (1) ST elevation (STEMI) myocardial infarction Involved coronary artery: unspecified coronary artery Qualified Code(s): I21.3 - ST elevation (STEMI) myocardial infarction of unspecified site
[2019-10-30] MEDS ORDERED: NITROGLYCERIN SL 0.4 MG/TAB TAB SL SCH (13:30)
[2019-10-30] MEDS ORDERED: TICAGRELOR 90 MG TAB PO SCH (13:30)
--- NOTE | 2019-10-30 13:33 | Discharge Summary ---
Date of Service October 30, 2019 Principal Diagnosis Pt continues to have pain in her R forearm, although she feels that the swelling is much improved. Pain seems to be more from bending the arm due to the bruising. Able to use her fingers without issue. Pt denies fever, SOB, chest pain, abd pain, n/v/c/d, LE pain or swelling. She would like to go home today. Discharge Exam Constitutional WD/WN, vitals as above Eyes normal visual white by confrontation and + anicteric sclerae Neck normal visual inspection and trachea midline Respiratory normal respiratory effort, lungs clear to auscultation Cardiovascular Rate/Rhythm: regular rate and regular rhythm Extremities: + edema (R forearm--improving) Gastrointestinal (Abdomen) Inspection/Auscultation: abdomen not distended Percussion/Palpation: abdomen soft; abdomen nontender Musculoskeletal Head/Neck/Chest: normocephalic and head atraumatic ROM of R fingers and wrist WNL, slightly decreased flexion at elbow related to pain Skin no rashes, warm and dry Trauma: + contusion (R superior proximal forearm/anticubital fossa) Neurologic awake; not confused Speech / Cognition: normal speech Psychiatric A+Ox3, euthymic affect Discharge Data Allergies Allergy/AdvReac Type Severity Reaction Status Date / Time No Known Allergies Allergy Verified 10/03/19 07:52 Consultations 10/28/19 13:01 ED Decision to Admit Stat 10/28/19 14:35 Consult Cardiac Rehabilitation Routine Consult Case Management - Discharge Planning Routine Consult Food Service Worker Hospital Routine Procedures Performed Operation Date: 10/28/19 12:50 Actual Procedures p Aspiration/PCI w/NATALIYA for Stemi - Trevor Gray MD s Cardiac Heart Alert - Trevor Gray MD s Cath, Left with Cors and Vent - Trevor Gray MD s Cineradiography w/Routine Exam - Trevor Gray MD Ordered Studies 10/28/19 12:51 CL Cath Imgs for PACS use only Stat Hospital Course (1) ST elevation (STEMI) myocardial infarction: Appreciate interventional cardiology management s/p x2 LAD NATALIYA As per cardiology Former smoker Hx of statin use with LDL 51 and HDL 42 ECHO with EF 45% and multiple areas of hypokinesis, akinesis noted Increase statin to 80mg Add aspirin 81mg, Brilinta, metoprolol d/c cardizem (2) Hyperlipidemia: As above (3) Fibromyalgia: No home meds (4) Acid reflux disease: continue home meds (5) Diabetes mellitus: A1c 7.6 continue home meds (6) Localized swelling of right upper extremity: Related to heart cath Bruising and swelling noted, continues to improve Kpad PRN Total Time Total Time Spent Total Time Spent (In Minutes): >30 Total Time Includes: Examination of the Patient, Discharge Planning, Medication Reconciliation, Communication With Other Providers and Other Discharge Plan Discharge Items Patient Disposition: Home - Self-Care Reason For Visit: STEMI Discharge Diagnosis: STEMI Activity: Resume your previous activity Non-emergency contact: Primary Care Provider and Environmental Lawyer Call non-emergency contact if: you have any medication questions, your pain is not controlled, your pain is worsening, your pain is unusual for you and your pain is concerning for you Follow-up/Referrals: Gordon Marcelino, DO [Primary Care Provider] - Diet: Carb Consistent or DM2 Addtl Attending Provider Instructions: You are going to be doubling your dose of atorvastatin. You can use the pills you already have at home and just take 2 instead of one a day. I did send a new prescription for this to your pharmacy as well. You are going to be on a medication called Brilinta for at least 1 year. This is a newer medication and some insurances do not cover it. We have no way of checking this because it is the holiday. If you get to your pharmacy tomorrow and it is too expensive or not covered at all, call Dr. Gray's office and they will give you free samples of this medication. You should use a warm compress on your arm to help with the pain and bruising. You can use it for 15-20 minutes every 2 hours as needed. You should see your PCP later this week and Dr. Gray in 1-2 weeks. Our comp field case manager will call you tomorrow with those appts. If you do not hear back from someone by Wednesday, you should call the hospital and ask to speak with case management. ACTIVITY RECOMMENDATIONS: It is common to feel weak and fatigue for a few days. * Do not drive or operate any motorized equipment for the next three days. * Limit stair usage (2 or 3 trips a day only) for the next three days. * Do not lift anything heavier than 10 pounds for the next three days. * Do not engage in vigorous exercise or any sports for the next five days. * You may shower the day after your procedure, but do not immerse the area for three days. Cleanse the site gently with soap and water. SPECIAL CARE INSTRUCTIONS: * You may replace the pressure dressing or band-aid the morning after the procedure. * After your procedure, it is normal to have a small bruise or small lump at the site. Examine your site daily for any change in the bruise or lump, redness, swelling, drainage or numbness. Notify your doctor if any change. BLEEDING: * If there is a small amount of bleeding at the site, lie down and apply firm pressure with a clean cloth for ten minutes. When the bleeding stops, lie quietly keeping the procedure limb straight for six hours. Notify your doctor as soon as possible. * If the bleeding does not stop after ten minutes or if there is a large amount of bleeding or spurting, call 911 immediately. Continue to lie down and hold firm pressure until help arrives. SKIN IRRITATION: * You may experience some redness and/or swelling in the area where radiation was administered. If any skin irritation occurs, please contact your family physician. FOLLOW UP VISIT: Keep any scheduled doctor appointments. Pending Studies at Discharge: No Stand-Alone Forms: My [facility] Timely, Smoking Cessation Medications and DC Order Prescriptions: New Brilinta 90 mg Tablet 90 mg PO BID Qty: 60 RF: 0 atorvastatin 40 mg Tablet 80 mg PO QAM Qty: 60 RF: 0 metoprolol tartrate 25 mg Tablet 12.5 mg PO BID Qty: 60 RF: 0 nitroglycerin 0.4 mg tablet, sublingual 0.4 mg sublingual Q5M PRN (Reason: chest pain) Qty: 20 RF: 0 aspirin 81 mg Tablet,Delayed Release (Dr/Ec) 81 mg PO QAM Qty: 30 RF: 0 Continued clobetasol 0.05 % cream See Rx Instructions .ROUTE .COMPLEX Qty: 30 RF: 0 (DME) OneTouch Ultra Blue Test Strip Strip See Dose Instructions .ROUTE .MEDSUPPLY Qty: 100 RF: 5 metformin 500 mg tablet See Rx Instructions .ROUTE .COMPLEX Qty: 0 RF: 0 (DME) lancets [OneTouch Delica Plus Lancet] 30 gauge misc See Rx Instructions .ROUTE .MEDSUPPLY Qty: 100 RF: 5 cyanocobalamin (vitamin B-12) 100 mcg tablet 100 mcg PO DAILY RF: 0 ascorbic acid (vitamin C) 500 mg capsule 500 cap PO DAILY RF: 0 pyridoxine (vitamin B6) 100 mg tablet 100 mg PO DAILY RF: 0 melatonin 5 mg tablet 5 mg PO DAILY RF: 0 turmeric 400 mg capsule 400 mg PO DAILY RF: 0 omega-3 fatty acids [Fish Oil Concentrate] 1,000 mg capsule 2,000 mg PO DAILY RF: 0 fluticasone propionate 50 mcg/actuation spray,suspension 2 sprays intranasal DAILY Qty: 18.2 RF: 0 omeprazole 20 mg tablet,delayed release (DR/EC) 20 mg PO DAILY Qty: 90 RF: 0 calcium carb,lactat-vitamin D3 200 mg calcium -250 unit tablet 2 tab PO DAILY RF: 0 losartan 50 mg tablet 50 mg PO DAILY Qty: 30 RF: 2 glipizide 5 mg tablet 5 mg PO BID Qty: 60 RF: 2 Excedrin Migraine 1 tab PO UD PRN (Reason: Migraine Headache) RF: 0 Discontinued atorvastatin 40 mg tablet 40 mg PO DAILY Qty: 30 RF: 2 diltiazem HCl 120 mg capsule,extended release 24 hr 120 mg PO DAILY Qty: 30 RF: 2 Discharge Orders: Discharge Order (Routine); Ordered 10/30/19 Ordered By: Esther Mckinney/Other Patient Handouts: Having Cardiac Catheterization, High Blood Sugar (Hyperglycemia), Hypoglycemia (Low Blood Sugar), Managing Type 2 Diabetes, Cardiac Catheterization Dc, Managing Diabetes: The A1C Test, Diabetes: Meal Planning, Eating Heart-Healthy Foods Admission Data Admit Date/Time: 10/28/19 14:35 Attending Provider: Esther Miller Admit Provider: Trevor Gray Primary Care Provider: Gordon Marcelino Other Providers: Chavo Ma ; Philip More Other Interventions: Discharge Summary Assessment (RN) Last Done: 10/30/19 13:34 Coding Level of Care Code D/C Day Management >[address] elevation (STEMI) myocardial infarction I21.3 Involved coronary artery: unspecified coronary artery Hyperlipidemia E78.5 Fibromyalgia M79.7 Acid reflux disease K21.9 Diabetes mellitus E11.9 Localized swelling of right upper extremity R22.31
[2019-10-30] MEDS ORDERED: INSULIN GLARGINE SOLOSTAR 100 UNITS/ML 3 ML PEN SC SCH (21:00)
--- NOTE | 2019-10-31 18:24 | Electrocardiogram Report ---
Test Reason : Blood Pressure : / mmHG Vent. Rate : 076 BPM Atrial Rate : 076 BPM P-R Int : 140 ms QRS Dur : 068 ms QT Int : 398 ms P-R-T Axes : 083 009 029 degrees QTc Int : 447 ms Poor data quality, interpretation may be adversely affected Normal sinus rhythm Poor R wave progression, consider anterior AK vs. lead placement vs. LVH Low voltage QRS Borderline ECG When compared with ECG of 28-OCT-2019 12:39, ST no longer elevated in Anterior leads T wave amplitude has decreased in Anterolateral leads Confirmed by Erich Lazcano ([id number]) on 10/31/2019 6:23:53 PM Referred By: REFERRED SELF Confirmed By:Joaquin Lazcano
--- NOTE | 2019-10-31 18:24 | Electrocardiogram Report ---
Test Reason : Blood Pressure : / mmHG Vent. Rate : 073 BPM Atrial Rate : 073 BPM P-R Int : 162 ms QRS Dur : 070 ms QT Int : 396 ms P-R-T Axes : 057 -02 029 degrees QTc Int : 436 ms Poor data quality, interpretation may be adversely affected Normal sinus rhythm Poor R wave progression, consider anterior NM vs. lead placement vs. LVH Low voltage QRS Borderline ECG When compared with ECG of 28-OCT-2019 12:39, ST no longer elevated in Anterior leads T wave amplitude has decreased in Anterolateral leads Confirmed by Erich Lazcano ([id number]) on 10/31/2019 6:23:39 PM Referred By: REFERRED SELF Confirmed By:Joaquin Lazcano
== END 2019-10-30 14:36 | disposition home or self-care (01) | DRG 247 ==
LOC: ED 12:34 → 1E 13:00 → SUATTDRO 14:35 → 1E 14:35 → 2S 10-29 13:14

== ENCOUNTER 2019-11-03 00:39 | Observation (INO) ==
--- NOTE | 2019-11-03 00:48 | Emergency Department Note ---
ED Visit Note I have seen and examined this patient with Allyn Mcneal and generally agree with the treatment plan as discussed. . : Chest pain Qualifiers: Chest pain type: unspecified Qualified Code(s): R07.9 - Chest pain, unspecified
[2019-11-03] MEDS ORDERED: NITROGLYCERIN SL 0.4 MG/TAB TAB SL PRN ×2 (00:50→06:08)
[2019-11-03 01:09] LABS: Basophils # (auto) 0.02 K/uL (0-0.2); Basophils % (auto) 0.2 %; Hemoglobin 11.8 g/dL (12.0-16.0); Immature Granulocytes # (auto) 0.03 K/uL (0.00-0.02); Immature Granulocytes % (auto) 0.3 %; Lymphocytes % (auto) 15.2 %; Mean Corpuscular Hemoglobin 31.8 pg (25-34); Mean Corpuscular Hgb Conc 33.7 g/dL (32-36); Mean Corpuscular Volume 94.3 fL (80-100); Mean Platelet Volume 9.2 fL (7.4-10.4); Monocytes # (auto) 0.69 K/uL (0.11-0.59); Neutrophils # (auto) 7.51 K/uL (1.4-6.5); Neutrophils % (auto) 76.3 %; Platelet Count 345 K/uL (130-400); RDW Coefficient of Variation 12.4 % (11.5-14.5); RDW Standard Deviation 41.6 fL (36.4-46.3); Red Blood Count 3.71 M/uL (4.2-5.4); White Blood Count 9.85 K/uL (4.8-10.8)
--- NOTE | 2019-11-03 01:13 | Emergency Department Note ---
History of Present Illness General Chief complaint: Cardiac Assessment Stated complaint: CHEST PRESSURE Time Seen by Provider: 11/03/19 00:40 History of Present Illness Maximum Pain Intensity: 4 This 69-year-old presents to the ER complaining of chest pressure with nausea and diaphoresis who had a stent placed last week Location: Chest Quality: Pressure Severity: Moderate Duration: Tonight Timing: Started while laying in bed Context: Patient was concerned and called EMS Modifying factors: better with nothing; worse with nothing Patient states symptoms are not as bad as last week when she had her heart attack. Dr. Gray is her spice fumigator. She has appointment with him next week. She is not missed any of her medications. Patient denies exertional chest pain, fever, chills, radiating pain, numbness, tingling, localized weakness. Home Medications Home Medications Medication Instructions Recorded Confirmed Type ascorbic acid (vitamin C) 500 mg 500 cap PO DAILY cap 08/08/18 11/03/19 History capsule cyanocobalamin (vitamin B-12) 100 100 mcg PO DAILY tab 08/08/18 11/03/19 History mcg tablet melatonin 5 mg tablet 5 mg PO DAILY tab 08/08/18 11/03/19 History pyridoxine (vitamin B6) 100 mg 100 mg PO DAILY tab 08/08/18 11/03/19 History tablet fluticasone propionate 50 2 sprays INTRANASAL DAILY #18.2 gm 08/30/18 11/03/19 Rx mcg/actuation nasal spray,suspension omega-3 fatty acids 1,000 mg 2,000 mg PO DAILY cap 08/30/18 11/03/19 History capsule omeprazole 20 mg tablet,delayed 20 mg PO DAILY #90 tab 08/30/18 11/03/19 Rx release turmeric 400 mg capsule 400 mg PO DAILY cap 08/30/18 11/03/19 History calcium carbonat and lactate 200 2 tab PO DAILY 09/05/18 11/03/19 History mg calcium-vitamin D3 250 unit tablet clobetasol 0.05 % topical cream See Rx Instructions .ROUTE 01/17/19 11/03/19 Rx .COMPLEX #30 gm blood sugar diagnostic #100 ea 09/28/19 11/01/19 Rx lancets 30 gauge #100 ea 09/28/19 11/01/19 Rx metformin 500 mg tablet See Rx Instructions .ROUTE 09/28/19 11/03/19 Rx .COMPLEX #0 tab glipizide 5 mg tablet 5 mg PO BID #60 tab 10/03/19 11/03/19 Rx losartan 50 mg tablet 50 mg PO DAILY #30 tab 10/03/19 11/03/19 Rx aspirin 81 mg PO QAM #30 tab 10/30/19 11/03/19 Rx atorvastatin 80 mg PO QAM #60 tab 10/30/19 11/03/19 Rx metoprolol tartrate 12.5 mg PO BID #60 tab 10/30/19 11/03/19 Rx nitroglycerin 0.4 mg SUBLINGUAL Q5M PRN #20 tab 10/30/19 11/03/19 Rx ticagrelor [Brilinta] 90 mg PO BID #60 tab 10/30/19 11/03/19 Rx ersfwbt-jtxkvvezmiala-pfemlrub 250 1 tab PO Q6H PRN 11/01/19 11/03/19 History mg-250 mg-65 mg tablet Allergies Allergy/AdvReac Type Severity Reaction Status Date / Time No Known Allergies Allergy Verified 11/03/19 02:16 Past Med/Surg History Medical History Benign hypertension CAD (coronary artery disease) Cellulitis of right foot Diabetes mellitus Hypertension Paroxysmal atrial fibrillation ST elevation (STEMI) myocardial infarction Surgical History History of bladder surgery History of oophorectomy History of tubal ligation S/P drug eluting coronary stent placement Family History Sister Breast cancer Grandmother (Paternal) Diabetes Mother Hypertension Denies family history of Ovarian cancer Prostate cancer Myocardial infarction Colorectal cancer Social History Smoking Status: Never smoker Cigarettes Per Day: 20; Second Hand Exposure: No; Hx Alcohol Use: Yes Hx Substance Use: No Preferred Language: Spanish Communication Ability: Effective Mushroom Cutter Required: No Beliefs That Will Affect Care: None marital status: Current Living Situation: Spouse current occupational status: retired Feels Safe at Home: Yes caffeine: Yes (coffee) Dental Care, Regularly: Yes Physical Activity Frequency: Does not Exercise Seatbelt Use: always Sunscreen Use: No Review of Systems A total of 10 systems reviewed and were otherwise negative Physical Exam Vital Signs Vital Signs - 24 hr 11/03/19 00:56 11/03/19 01:48 11/03/19 03:00 Temperature 37.1 C Temperature Source Oral Pulse Rate 77 Pulse Rate [Apical] 71 63 Pulse Rhythm Regular Pulse Rhythm [Apical] Irregular Pulse Strength Normal Respiratory Rate 23 18 18 Respiratory Effort / Characteristics Non-Labored Spontaneous Non-Labored Spontaneous Respiratory Depth Normal Normal Respiratory Pattern Regular Blood Pressure 158/92 H Blood Pressure [Right Arm] 128/73 109/66 Blood Pressure Mean 114 Blood Pressure Mean [Right Arm] 91 80 Blood Pressure Position Sitting Blood Pressure Position [Right Arm] Sitting Lying Pulse Oximetry 95 95 93 Oxygen Delivery Method Room Air Room Air Sepsis Recent Fever Within 48 Hours No Sepsis New/Unexplained Change in Mental Status No Sepsis Action Taken by Nursing No Action Required VITALS: Vitals are noted on the nurse's note and reviewed by myself. Vital signs stable. GENERAL: Pleasant elderly female, in no acute distress, nondiaphoretic, well- developed well-nourished. SKIN: Capillary reflex less than 2 seconds. HEENT: Normocephalic. PERRLA. EOMI. Nares patent. Mucous membranes moist. Neck is supple without nuchal rigidity. HEART: Regular rate and rhythm w LUNGS: Clear to auscultation bilaterally without wheezes, rales or rhonchi. No retractions or accessory muscle use. ABDOMEN: Positive bowel sounds x 4. Normal tympanic percussion. Soft, nontender, without masses or organomegaly. Garcia sign negative. No guarding or rebound tenderness. MUSCULOSKELETAL: No gross musculoskeletal defects. NEURO: Patient was alert and oriented to person place and time. No focal neurological deficits. Course Administered Medications Discontinued Medications Ioversol (Optiray 320 125ml) 125 ml IV ONCE ONE Stop: 11/03/19 02:33 Last Admin: 11/03/19 02:33 Dose: 97 ml Documented by: [id number] Morphine Sulfate (Morphine Sulfate 4 Mg/Ml 1 Ml Carp\Vial) 4 mg IV NOW STA Stop: 11/03/19 01:50 Last Admin: 11/03/19 02:13 Dose: 4 mg Documented by: [id number] Medical Decision Making Medical Records Attestation: I reviewed the patient's medical records. Home Medications Current Medication List: was personally reviewed by me Laboratory Data Attestation: I reviewed the patient's lab results. Result diagrams: 11/03/19 01:01 11/03/19 01:01 Lab Results 11/03/19 11/03/19 11/03/19 Range/Units 01:01 01:01 01:01 WBC 9.85 (4.8-10.8) K/uL RBC 3.71 L (4.2-5.4) M/uL Hgb 11.8 L (12.0-16.0) g/dL Hct 35.0 L (37-47) % MCV 94.3 (80-100) fL MCH 31.8 (25-34) pg MCHC 33.7 (32-36) g/dL RDW Std Deviation 41.6 (36.4-46.3) fL RDW Coeff of Rachelle 12.4 (11.5-14.5) % Plt Count 345 (130-400) K/uL MPV 9.2 (7.4-10.4) fL Immature Gran % (Auto) 0.3 % Neut % (Auto) 76.3 % Lymph % (Auto) 15.2 % [place] % (Auto) 7.0 % Eos % (Auto) 1.0 % Baso % (Auto) 0.2 % Neut # (Auto) 7.51 H (1.4-6.5) K/uL Lymph # (Auto) 1.50 (1.2-3.4) K/uL [place] # (Auto) 0.69 H (0.11-0.59) K/uL Eos # (Auto) 0.10 (0-0.5) K/uL Baso # (Auto) 0.02 (0-0.2) K/uL Immature Gran # (Auto) 0.03 H (0.00-0.02) K/uL PT 10.4 (9.0-12.0) Seconds INR 1.0 (0.9-1.1) APTT 23.1 (21.0-31.0) Seconds PTT Ratio 0.8 Sodium 139 (136-145) mmol/L Potassium 4.1 (3.5-5.1) mmol/L Chloride 104 (98-107) mmol/L Carbon Dioxide 26 (21-32) mmol/L Anion Gap 10.0 (3-11) BUN 18 (7-18) mg/dl Creatinine 1.00 (0.6-1.2) mg/dl Est Cr Clr Drug Dosing 56.1 ml/min Est GFR ( Amer) 67.0 Est GFR (Non-Af Amer) 57.8 BUN/Creatinine Ratio 17.8 (10-20) Glucose 112 H (70-99) mg/dl Calcium 10.0 (8.5-10.1) mg/dl Total Bilirubin 0.5 (0.2-1) mg/dl AST 40 H (15-37) U/L ALT 44 (12-78) U/L Alkaline Phosphatase 95 (45-117) U/L Troponin I 5.690 H* (0-0.045) ng/ml Total Protein 7.5 (6.4-8.2) gm/dl Albumin 3.6 (3.4-5.0) gm/dl Globulin 3.9 (2.5-4.0) gm/dl Albumin/Globulin Ratio 0.9 (0.9-2) Lipase 179 (73-393) U/L Imaging Data Attestation: I personally reviewed and interpreted this imaging study as follows: Blood Pressure Blood Pressure Findings: Elevated blood pressure Blood Pressure Disposition: Referred to patients primary care provider MDM Narrative Prior records/ancillary studies reviewed. Triage Nursing notes reviewed. Additional history obtained from EMS. The patient's history was concerning for chest pain. Differential diagnosis: Etiologies such as cardiac ischemia, aortic dissection, pulmonary embolism, pneumonia, pneumothorax, musculoskeletal, infections, pericarditis, myocarditis, esophageal rupture, gastrointestinal, as well as others were entertained. Physical examination: As above. ER treatment provided: An order was placed for continuous cardiac monitoring. The monitor shows a rate of 60-100 with a sinus rhythm. Nitroglycerin. EMS gave aspirin On reassessment the patient felt better. Diagnostic interpretation by me: #1: EKG ordered for chest pain The electrocardiogram was slight ST elevation with checkmark sign on anterior septal leads which is more prominent than prior. Impression normal sinus rhythm with ST changes per my interpretation I think arrhythmia is unlikely. EKG shows normal sinus rhythm with no interval abnormalities such as QT prolongation or WPW. There are no findings to suggest Brugada syndrome. Cardiac monitoring in the emergency department reveals no tachycardic or bradycardic dysrhythmia. Hypertrophic cardiomyopathy was considered but there are no clear historical elements pointing toward this. EKG is not suggestive. The QRS voltage is not extremely large. #2: EKG ordered for chest pain The electrocardiogram was slight ST elevation with checkmark sign on anterior septal leads which is more prominent than prior. Impression normal sinus rhythm with ST changes per my interpretation I think arrhythmia is unlikely. EKG shows normal sinus rhythm with no interval abnormalities such as QT prolongation or WPW. There are no findings to suggest Brugada syndrome. Cardiac monitoring in the emergency department reveals no tachycardic or bradycardic dysrhythmia. Hypertrophic cardiomyopathy was considered but there are no clear historical elements pointing toward this. EKG is not suggestive. The QRS voltage is not extremely large. #3: EKG ordered for chest pain The electrocardiogram was slight ST elevation with checkmark sign on anterior septal leads which is more prominent than prior. Impression normal sinus rhythm with ST changes per my interpretation I think arrhythmia is unlikely. EKG shows normal sinus rhythm with no interval abnormalities such as QT prolongation or WPW. There are no findings to suggest Brugada syndrome. Cardiac monitoring in the emergency department reveals no tachycardic or bradycardic dysrhythmia. Hypertrophic cardiomyopathy was considered but there are no clear historical elements pointing toward this. EKG is not suggestive. The QRS voltage is not extremely large. The labs revealed elevated troponin but trending down from prior Imaging studies: Chest x-ray with no acute consolidation, pneumothorax or free air per my interpretation CTA CHEST: Compared to 09/28/19. Interval development of interlobular septal thickening and trace pleural effusions. Suspect pulmonary edema. Coronary atherosclerosis. No PE or aortic dissection. Radiologist: Chavo Barton M.D. HEART SCORE: Hx: high/mod/low suspicion: 1 ECG: ST depression/nonspecific changes/normal: 1 Age: Greater than 65/45-64/less than 45: 2 Risk factors: (Hypertension, hyperlipidemia, diabetes, coronary disease, tobacco use, cocaine use): 2 Troponin: Greater than 2 times normal limits/1-2 times normal limits/normal: 2 Total: 8 Consultation: A consultation was placed with the hospitalist, Dr Chinchilla. The case was discussed and diagnostics were reviewed. The patient was evaluated in the ER for further treatment. Exam and history seem consistent with chest pains with concerns for possible cardiac etiology. EKG is slightly abnormal from baseline. Troponin is elevated but lower than prior. Patient did have a heart attack last week. Patient will be evaluated by medicine for possible admission. Serial EKGs did not show acute STEMI. By the evaluation outlined above emergent etiologies such as aortic dissection, pulmonary embolism, pneumonia, pneumothorax, infections, pericardi tis, myocarditis, gastrointestinal, as well as others were deemed relatively unlikely. The pt informed about the findings as listed above. All questions were answered and pleased with the treatment. The chart was completed utilizing [employer] app Speech voice recognition software. Grammatical errors, random word insertions, pronoun errors, and incomplete sentences are an occassional consequence of this system due to software limitations, ambient noise, and hardware issues. Any formal questions or concerns about the content, text, or information contained within the body of this dictation should be directly addressed to the physician assistant reading teacher for clarification. Impression & Plan Chest pain Discharge Plan Visit Data Chief Complaint: Cardiac Assessment Stated Complaint: CHEST PRESSURE ED Provider: Rodrigo Coker ED Midlevel Provider: Denia Mcneal Discharge Problem: Chest pain Patient Disposition: Being Evaluated by Hospitalist Condition: Good Forms Stand Alone Forms: [facility] Prescriptions Prescriptions: No Action clobetasol 0.05 % cream See Rx Instructions .ROUTE .COMPLEX Qty: 30 RF: 0 (DME) OneTouch Ultra Blue Test Strip Strip See Dose Instructions .ROUTE .MEDSUPPLY Qty: 100 RF: 5 metformin 500 mg tablet See Rx Instructions .ROUTE .COMPLEX Qty: 0 RF: 0 (DME) lancets [OneTouch Delica Plus Lancet] 30 gauge misc See Rx Instructions .ROUTE .MEDSUPPLY Qty: 100 RF: 5 cyanocobalamin (vitamin B-12) 100 mcg tablet 100 mcg PO DAILY RF: 0 ascorbic acid (vitamin C) 500 mg capsule 500 cap PO DAILY RF: 0 pyridoxine (vitamin B6) 100 mg tablet 100 mg PO DAILY RF: 0 melatonin 5 mg tablet 5 mg PO DAILY RF: 0 turmeric 400 mg capsule 400 mg PO DAILY RF: 0 omega-3 fatty acids [Fish Oil Concentrate] 1,000 mg capsule 2,000 mg PO DAILY RF: 0 fluticasone propionate 50 mcg/actuation spray,suspension 2 sprays intranasal DAILY Qty: 18.2 RF: 0 omeprazole 20 mg tablet,delayed release (DR/EC) 20 mg PO DAILY Qty: 90 RF: 0 calcium carb,lactat-vitamin D3 200 mg calcium -250 unit tablet 2 tab PO DAILY RF: 0 losartan 50 mg tablet 50 mg PO DAILY Qty: 30 RF: 2 glipizide 5 mg tablet 5 mg PO BID Qty: 60 RF: 2 Excedrin Migraine 250-250-65 mg tablet 1 tab PO Q6H PRN (Reason: Migraine Headache) RF: 0 Brilinta 90 mg Tablet 90 mg PO BID Qty: 60 RF: 0 atorvastatin 40 mg Tablet 80 mg PO QAM Qty: 60 RF: 0 metoprolol tartrate 25 mg Tablet 12.5 mg PO BID Qty: 60 RF: 0 nitroglycerin 0.4 mg tablet, sublingual 0.4 mg sublingual Q5M PRN (Reason: chest pain) Qty: 20 RF: 0 aspirin 81 mg Tablet,Delayed Release (Dr/Ec) 81 mg PO QAM Qty: 30 RF: 0 Referrals Referrals: Gordon Marcelino DO [Primary Care Provider] - Discharge Problem: Chest pain Qualifiers: Chest pain type: unspecified Qualified Code(s): R07.9 - Chest pain, unspecified
[2019-11-03 01:20] LABS: Partial Thromboplastin Ratio 0.8; Partial Thromboplastin Time 23.1 Seconds (21.0-31.0); Prothrombin Time 10.4 Seconds (9.0-12.0)
[2019-11-03 01:26] LABS: Albumin Level 3.6 gm/dl (3.4-5.0); BUN Creatinine Ratio 17.8 (10-20); Creatinine Clr Calc Pharmacy 56.1 ml/min; Est GFR (Non-African American) 57.8; Potassium 4.1 mmol/L (3.5-5.1)
[2019-11-03] MEDS ORDERED: MoRPHine SULFATE 4 MG/ML 1 ML CARP\\VIAL IV STA (01:49)
[2019-11-03 01:53] LABS: Albumin Globulin Ratio 0.9 (0.9-2); Bilirubin,Total 0.5 mg/dl (0.2-1); Globulin 3.9 gm/dl (2.5-4.0); Total Protein 7.5 gm/dl (6.4-8.2); Troponin I 5.69 ng/ml (0-0.045)
[2019-11-03] MEDS ORDERED: OPTIRAY 320 125ml IV ONE (02:32)
[2019-11-03] MEDS ORDERED: Heparin IV Standard *NO* Bolus IV SCH (04:27)
[2019-11-03] MEDS ORDERED: HEPARIN SODIUM/DEXTROSE 25,000 UNITS/500 ML BAG IV SCH (04:30)
--- NOTE | 2019-11-03 04:44 | History & Physical Report ---
Date of Service November 03, 2019 Assessment & Plan (1) Chest pain: Nayeli Botello is a 69 year old woman with a past medical history of DMII and recent STEMI on 10/27 s/p stent x1 LAD who presents with 5 hours of chest pressure that began acutely last night. Chest Pressure Central crushing chest pressure given history of recent cath and stent placement differential is broad. Most concerning would be stent occlusion or new thrombosis/STEMI but also possibly post GA inflammatory oswald syndrome type picture. ST elevations in V1 V2 V3 stable on serial exams, Troponin elevated to 5.69 this appears to be consistent with a declining troponin from her last admission which was undetectably high on 10/28. Will admit to PCU on monitor Heparin drip started Will trend troponins to make sure they are declining wIll get echo in am to look for any post GA complications that could be causing her pain Continuing home DAPT and beta jose manuel Cardiology Dr. Gray consulted Atrial Fibrillation Patient with paroxysmal A fib not currently on anticoagulation Cardiology consulted On heparin now DMII On SLiding scale oral meds held F/E/N: NPO DVT PPx: On heparin drip Dispo: PCU for further cardiac workup and evaluation FUll Code (2) Paroxysmal atrial fibrillation: (3) Ischemic cardiomyopathy: (4) Hypertension: (5) ST elevation (STEMI) myocardial infarction: (6) S/P drug eluting coronary stent placement: (7) CAD (coronary artery disease): (8) Localized swelling of right upper extremity: (9) S/P PTCA (percutaneous transluminal coronary angioplasty): History of Present Illness Chief Complaint: Chest pressure Primary Care Provider: Gordon Marcelino DO Nayeli Botello is a 69 year old woman with a past medical history significant for DMII and recent STEMI with stent placement in the LAD on 10/27. Since that time patient has returned home and been compliant with her appropriate discharge therapies. She has done well at home until 2300 when she started having severe chest "pressure" feeling was central and was associated with a sudden clamminess and inability to catch her breath. She also felt clammy and short of breath during her STEMI, however at that time she did not experience the pressure but rather just severe pain. She repeatedly tells me she has no pain now just a large amount of pressure. Her pain was not relieved by nitroglycerin she was brought in by ambulance. ECG showing V1 v2 v3 ST elevations not markedly different from her most recent discharge. Serial ECG's not showing obvious evolving nature. Troponin elevated at 5.69, CXR showing prominent pulmonary vasculature, no clear acute processes in the chest, CTA showing septal thickening, trace pleural effusions and possible pulmonary edema. Was given nitro and morphine. At present pressure is calmed down and she is resting comfortably though still endorses mild pressure. No other concerns at present, here with , would like to be a full code. Recently quit smoking cigarettes, no alcohol use, no drug use. Allergies Allergy/AdvReac Type Severity Reaction Status Date / Time No Known Allergies Allergy Verified 11/03/19 02:16 Home Medications Home Medications Medication Instructions Recorded Confirmed Type ascorbic acid (vitamin C) 500 mg 500 cap PO DAILY cap 08/08/18 11/03/19 History capsule cyanocobalamin (vitamin B-12) 100 100 mcg PO DAILY tab 08/08/18 11/03/19 History mcg tablet melatonin 5 mg tablet 5 mg PO DAILY tab 08/08/18 11/03/19 History pyridoxine (vitamin B6) 100 mg 100 mg PO DAILY tab 08/08/18 11/03/19 History tablet fluticasone propionate 50 2 sprays INTRANASAL DAILY #18.2 gm 08/30/18 11/03/19 Rx mcg/actuation nasal spray,suspension omega-3 fatty acids 1,000 mg 2,000 mg PO DAILY cap 08/30/18 11/03/19 History capsule omeprazole 20 mg tablet,delayed 20 mg PO DAILY #90 tab 08/30/18 11/03/19 Rx release turmeric 400 mg capsule 400 mg PO DAILY cap 08/30/18 11/03/19 History calcium carbonat and lactate 200 2 tab PO DAILY 09/05/18 11/03/19 History mg calcium-vitamin D3 250 unit tablet clobetasol 0.05 % topical cream See Rx Instructions .ROUTE 01/17/19 11/03/19 Rx .COMPLEX #30 gm blood sugar diagnostic #100 ea 09/28/19 11/01/19 Rx lancets 30 gauge #100 ea 09/28/19 11/01/19 Rx metformin 500 mg tablet See Rx Instructions .ROUTE 09/28/19 11/03/19 Rx .COMPLEX #0 tab glipizide 5 mg tablet 5 mg PO BID #60 tab 10/03/19 11/03/19 Rx losartan 50 mg tablet 50 mg PO DAILY #30 tab 10/03/19 11/03/19 Rx aspirin 81 mg PO QAM #30 tab 10/30/19 11/03/19 Rx atorvastatin 80 mg PO QAM #60 tab 10/30/19 11/03/19 Rx metoprolol tartrate 12.5 mg PO BID #60 tab 10/30/19 11/03/19 Rx nitroglycerin 0.4 mg SUBLINGUAL Q5M PRN #20 tab 10/30/19 11/03/19 Rx ticagrelor [Brilinta] 90 mg PO BID #60 tab 10/30/19 11/03/19 Rx hbforwq-yjnkmicgtldix-xjeasbwu 250 1 tab PO Q6H PRN 11/01/19 11/03/19 History mg-250 mg-65 mg tablet Past Med/Surg History Medical History Benign hypertension CAD (coronary artery disease) Cellulitis of right foot Diabetes mellitus Hypertension Paroxysmal atrial fibrillation ST elevation (STEMI) myocardial infarction Surgical History History of bladder surgery History of oophorectomy History of tubal ligation S/P drug eluting coronary stent placement Family History Sister Breast cancer Grandmother (Paternal) Diabetes Mother Hypertension Denies family history of Ovarian cancer Prostate cancer Myocardial infarction Colorectal cancer Social History Smoking Status: Former smoker Cigarettes Per Day: 20; Second Hand Exposure: No; Do You Dip or Chew Tobacco: No; Tobacco Cessation Education Requested by Patient: No Hx Alcohol Use: Yes Hx Substance Use: No Preferred Language: Spanish Communication Ability: Effective Appointment Coordinator Required: No Beliefs That Will Affect Care: None marital status: Current Living Situation: Spouse current occupational status: retired Other Information That Helps Us Care for You: No Feels Safe at Home: Yes Safety Concerns: Feels Safe At This Time caffeine: Yes (coffee) Dental Care, Regularly: Yes Physical Activity Frequency: Does not Exercise Seatbelt Use: always Sunscreen Use: No Review of Systems Review of Systems: All systems reviewed & are unremarkable except as noted in HPI & below Physical Exam Constitutional: well developed, well nourished and + obese; no acute distress Eyes: PERRL, conjunctivae normal, anicteric sclerae ENMT: external ear and nose normal, oropharynx normal Respiratory: normal respiratory effort; no respiratory distress and no cough Auscultation: + crackles; no wheezes Cardiovascular: Rate/Rhythm: regular rate and regular rhythm Heart Sounds: no click, no gallop, no murmur and no cardiac rub Vessels: normal peripheral pulses Extremities: no pedal edema Gastrointestinal (Abdomen): normal bowel sounds, soft, nontender, no hepatosplenomegaly Skin: Bruising on arm from catheterization site Results & Data Results & Data ([facility]) Vital Signs (Past 12 Hours) Vital Signs Temp Pulse Pulse Resp BP BP Pulse Ox 11/03/19 03:00 63 18 109/66 93 11/03/19 01:48 71 18 128/73 95 11/03/19 00:56 37.1 C 77 23 158/92 H 95 Code Status & VTE Plan VTE Prophylaxis Plan VTE Prophylaxis will be ordered: Yes Supervising Physician Co-Signing Physician Notes Patient seen and examined, chart reviewed, case discussed with Dr. Mccord and I agree with his assessment and plan as documented above. Briefly, patient is a 69-year-old female with history of coronary artery disease status post rashel nting of the proximal and mid LAD on 10/28/2019. Patient has been compliant with her medications. Presents today with acute onset substernal chest pressure. EKG similar to discharge EKG. Troponin is declining. Chest pain improved On exam patient is afebrile, hemodynamically stable, no acute distress Skinwarm, dry, intact, no rashes/lesions HEENTnormocephalic/atraumatic, pupils equal round react to light, extraocular muscles intact, neck supple, no JVD Heart+ S1, S2, regular, no murmur/rub/gallop Lungs+ crackles in bilateral bases, no rhonchi/wheezes Abdomen + bowel sounds, soft, nontender, nondistended Extremitieswarm, well-perfused, significant bruising noted in the right upper extremity. Palpable pulses, sensation and mobility intact, extremity warm and soft. Right groin site with minimal bruising, nontender with no palpable hematoma Labs and images reviewed Assessment/[id number] female with CAD status post stenting to mid and proximal LAD on 10/28/2019 presenting with substernal chest heaviness - observation to PCU Check CK-MB/troponin Continue cardiac medications, dual antiplatelet therapy Heparin drip Cardiology consultation appreciated Remainder of plan as above Resident Activity Tracking Resident Involvement: Resident Care Provided Care Provided: Adult Hospital Medicine (1) ST elevation (STEMI) myocardial infarction Involved coronary artery: unspecified coronary artery Qualified Code(s): I21.3 - ST elevation (STEMI) myocardial infarction of unspecified site (2) Chest pain Chest pain type: unspecified Qualified Code(s): R07.9 - Chest pain, unspecified
[2019-11-03] MEDS ORDERED: HEPARIN 25000 UNIT/500 ML D5W IV ONE (04:54)
[2019-11-03] MEDS ORDERED: CARBOHYDRATES FOR HYPOGLYCEMIA PO PRN (06:08)
[2019-11-03] MEDS ORDERED: ONDANSETRON INJ 2 MG/ML 2 ML VIAL IV PRN (06:08)
[2019-11-03] MEDS ORDERED: ACETAMINOPHEN 325 MG TAB PO PRN (06:08)
[2019-11-03] MEDS ORDERED: GLUCAGON FOR INJ 1 MG VIAL SQ PRN (06:08)
[2019-11-03] MEDS ORDERED: NON-FORMULARY MEDICATION (Aspirin-Acetaminophen-Caffeine [Excedrin Migraine] 1 TAB) PO PRN (06:08)
[2019-11-03] MEDS ORDERED: GLUCOSE 10 TABS/TUBE PO PRN (06:08)
[2019-11-03] MEDS ORDERED: DC ALL PREVIOUSLY ORDERED DIABETES MEDS ONE (06:08)
[2019-11-03] MEDS ORDERED: GLUCOSE 40% GEL 15 GM TUBE PO PRN (06:08)
[2019-11-03] MEDS ORDERED: POLYETHYLENE (MIRALAX) 17 GM PACK PO PRN (06:08)
[2019-11-03] MEDS ORDERED: DEXTROSE 50% 50 ML SYRINGE IV PRN (06:08)
[2019-11-03] MEDS ORDERED: MoRPHine SULFATE 2 MG/ML CARP IV PRN (06:08)
--- NOTE | 2019-11-03 06:27 | Billing Data ---
Date of Service November 03, 2019 Coding Level of Care Code 27617 OBS Care - Level 3
--- NOTE | 2019-11-03 06:42 | XRay Report ---
XR chest 1V portable HISTORY: 69 years-old Female Chest Pain acute atypical chest pain COMPARISON: CTA chest of same day, chest radiograph 10/28/2019 TECHNIQUE: Portable AP view of the chest FINDINGS: Cardiomediastinal and hilar silhouettes are within normal limits. Trace pleural effusions. Pulmonary vascular congestion with reticular opacities. No pneumothorax or lobar airspace consolidation typical for pneumonia. Minimal bibasilar atelectasis. Healed remote right-sided rib fractures. Degenerative changes of the shoulders and spine. IMPRESSION: Mild pulmonary edema with trace pleural effusions. ACT 112: Negative or not required by law. The above report was generated using voice recognition software. It may contain grammatical, syntax o r spelling errors. Electronically signed by: Lukasz Quinn M.D. 11/03/2019 6:40 AM
[2019-11-03 07:47] LABS: Creatine Kinase MB 2.4 ng/ml (0.5-3.6); Troponin I 3.03 ng/ml (0-0.045)
--- NOTE | 2019-11-03 08:27 | CT Scan Report ---
CT ANGIOGRAM OF THE CHEST CLINICAL HISTORY: Atypical chest pain. COMPARISON STUDY: Chest x-ray dated 11/03/2019. Chest CT dated 09/28/2019. TECHNIQUE: Following the IV administration of 97 cc of Optiray 320, CT angiogram of the chest was per formed from the upper abdomen to the thoracic inlet utilizing the pulmonary embolus protocol. Images are reviewed in the axial, sagittal, and coronal planes. 3-D MIPS images are created and assessed. IV contrast was administered without complication. A dose lowering technique was utilized adhering to the principles of ALARA. CT DOSE: 523.12 mGy.cm FINDINGS: Thyroid: Atrophic. Thoracic aorta: There is mild atherosclerotic calcification of the thoracic aorta, which is normal in caliber and demonstrates bovine variant arch anatomy. No dissection is seen. Pulmonary vasculature: The pulmonary trunk is normal in caliber. There are no filling defects identif ied in main, lobar, or segmental pulmonary branches to suggest pulmonary embolus. Heart: The heart is enlarged noting trace pericardial effusion. The coronary arteries are densely greer cified. Lungs and pleural spaces: Evaluation of the lung parenchyma is modestly degraded by motion artifact. There are trace pleural effusions and bibasilar atelectasis. Diffuse intralobular septal thickening i ndicates congestive failure. There is mild diffuse peribronchial thickening. No airspace consolidatio n is identified. The trachea and central airways are clear. Mediastinum: There is no mediastinal lymphadenopathy. Nell: Clear. Axillae: There is no axillary lymphadenopathy. Upper abdomen: Partially visualized upper abdominal viscera is within normal limits. Skeletal structures: The skeletal structures are osteopenic. Degenerative change and mild compression deformities are noted in the thoracic spine. There are healed right-sided rib fractures. No lytic or blastic bony lesions are seen. IMPRESSION: 1. There is no evidence of pulmonary embolus in the main, lobar, or segmental pulmonary arteries. 2. Cardiomegaly with evidence of congestive failure. 3. Trace pleural effusions. ACT 112: Negative or not required by law. Electronically signed by: Eusebio Ontiveros M.D. 11/03/2019 8:26 AM
[2019-11-03] MEDS ORDERED: LOSARTAN POTASSIUM 50 MG TAB PO SCH (09:00)
[2019-11-03] MEDS ORDERED: METOPROLOL TARTRATE 25 MG TAB PO SCH (09:00)
[2019-11-03] MEDS ORDERED: ATORVASTATIN 40 MG TAB PO SCH (09:00)
[2019-11-03] MEDS ORDERED: PYRIDOXINE HCL 50 MG TAB PO SCH (09:00)
[2019-11-03] MEDS ORDERED: ASCORBIC ACID 500 MG TAB PO SCH (09:00)
[2019-11-03] MEDS ORDERED: CALCIUM 600MG + VIT D 400 IU TAB PO SCH (09:00)
[2019-11-03] MEDS ORDERED: CYANOCOBALAMIN (VITAMIN B-12) 100 MCG TABLET PO SCH (09:00)
[2019-11-03] MEDS ORDERED: PANTOprazole 40 MG TAB PO SCH (09:00)
[2019-11-03] MEDS ORDERED: OMEGA-3 (PURIFIED FISH OIL) 1 GM CAP PO SCH (09:00)
[2019-11-03] MEDS ORDERED: TICAGRELOR 90 MG TAB PO SCH (09:00)
[2019-11-03] MEDS ORDERED: ASPIRIN 81 MG ECTAB PO SCH (09:00)
[2019-11-03] MEDS ORDERED: FLUTICASONE PROPIONATE NA SPR 16 GM BTL SCH (09:00)
[2019-11-03] MEDS ORDERED: NON-FORMULARY MEDICATION (Turmeric 400 MG) PO SCH (09:00)
[2019-11-03] MEDS ORDERED: MELATONIN 3 MG TAB PO SCH ×2 (09:00→21:00)
[2019-11-03] MEDS: INSULIN ASPART 100 UNITS/ML 3 ML PEN SC SCH ×2 (09:20→12:15)
[2019-11-03 11:20] LABS: Partial Thromboplastin Ratio 1.3; Partial Thromboplastin Time 36.2 Seconds (21.0-31.0)
[2019-11-03] MEDS ORDERED: HEPARIN IV BOLUS 5,000 UNITS in SYRINGE 0 ML IV STA (11:36)
--- NOTE | 2019-11-03 11:36 | XCELERA ---
[id number]
--- NOTE | 2019-11-03 12:34 | Cardiology Consultation ---
Date of Consultation November 03, 2019 Assessment & Plan (1) Chest pain: She did not characterize her symptoms as pain. She had a sense of fullness or pressure in the chest. This likely elicited some anxiety given her recent event. Continues to have some symptoms without any objective evidence of ongoing ischemia. Certainly not an acute coronary syndrome or the more likely complication, acute stent thrombosis. Do not believe this represents Stephanie syndrome. Do not believe she has evidence of pericarditis or pericardial irritation. She may have an element of pulmonary vascular congestion and I think a dose of diuretic would be helpful. (2) Paroxysmal atrial fibrillation: This was seen during her prior hospitalization. No clinical recurrence. No indication for systemic anticoagulation at this point. (3) Ischemic cardiomyopathy: Overall LV function appears to be stable. It is unclear she has completed her infarct or has stunned myocardium on echocardiography. She was started on medical therapy at the time of her discharge. Given her reduced LV function and history of diabetes she likely benefit from the addition of an aldosterone antagonist. Would suggest spironolactone 25 mg daily. I will order this to start tomorrow. It could be ordered at the time of discharge as well. She will require routine lab work for follow-up of her renal function and potassium within a week of starting spironolactone. (4) CAD (coronary artery disease): PCI to the LAD 6 days ago. She will continue on high-dose atorvastatin and dual anti-platelet therapy. She will continue her ARB and metoprolol. Her metoprolol can be switched to succinate, 25 mg daily. Nonobstructive disease in the other distributions at the time of catheterization. History of Present Illness Reason for Consultation: Chest pressure Requesting Physician: Flex Attending Physician: Trevor Collado MD History of Present Illness The patient is a 61-year-old woman with a history of coronary disease having suffered an acute anterior myocardial infarction on 10/28/2019. The patient underwent acute intervention with percutaneous stenting of the LAD and balloon angioplasty of a diagonal branch. The remainder of her angiography revealed only nonobstructive disease in the other vessels. The remainder of her hospital course was uncomplicated and she was discharged in good condition. Patient states that late last evening while she was sleeping she began to feel some heaviness in the left precordium. This was followed by a sense of diaphoresis and mild nausea. She stated she had some mild difficulty breathing as well. She monitored her symptoms for a while and eventually presented to the emergency room for an evaluation. She is given nitroglycerin without significant improvement. She then she was given narcotics with some improvement in her symptoms. He states that her symptoms never resolved entirely but became much more mild. She continues to have a sense of mild heaviness close to the left axilla this morning. She states that her symptoms may be improved with sitting upright. She has not report a pleuritic component. No sharp or stabbing character to her symptoms. The symptoms appear to be distinct from those experience at the time of her myocardial infarction. At that time she had notable pain with radiation in severe diaphoresis. Allergies Allergy/AdvReac Type Severity Reaction Status Date / Time No Known Allergies Allergy Verified 11/03/19 02:16 Home Medications Home Medications Medication Instructions Recorded Confirmed Type ascorbic acid (vitamin C) 500 mg 500 cap PO DAILY cap 08/08/18 11/03/19 History capsule cyanocobalamin (vitamin B-12) 100 100 mcg PO DAILY tab 08/08/18 11/03/19 History mcg tablet melatonin 5 mg tablet 5 mg PO DAILY tab 08/08/18 11/03/19 History pyridoxine (vitamin B6) 100 mg 100 mg PO DAILY tab 08/08/18 11/03/19 History tablet fluticasone propionate 50 2 sprays INTRANASAL DAILY #18.2 gm 08/30/18 11/03/19 Rx mcg/actuation nasal spray,suspension omega-3 fatty acids 1,000 mg 2,000 mg PO DAILY cap 08/30/18 11/03/19 History capsule omeprazole 20 mg tablet,delayed 20 mg PO DAILY #90 tab 08/30/18 11/03/19 Rx release turmeric 400 mg capsule 400 mg PO DAILY cap 08/30/18 11/03/19 History calcium carbonat and lactate 200 2 tab PO DAILY 09/05/18 11/03/19 History mg calcium-vitamin D3 250 unit tablet clobetasol 0.05 % topical cream See Rx Instructions .ROUTE 01/17/19 11/03/19 Rx .COMPLEX #30 gm blood sugar diagnostic #100 ea 09/28/19 11/01/19 Rx lancets 30 gauge #100 ea 09/28/19 11/01/19 Rx metformin 500 mg tablet See Rx Instructions .ROUTE 09/28/19 11/03/19 Rx .COMPLEX #0 tab glipizide 5 mg tablet 5 mg PO BID #60 tab 10/03/19 11/03/19 Rx losartan 50 mg tablet 50 mg PO DAILY #30 tab 10/03/19 11/03/19 Rx aspirin 81 mg PO QAM #30 tab 10/30/19 11/03/19 Rx atorvastatin 80 mg PO QAM #60 tab 10/30/19 11/03/19 Rx metoprolol tartrate 12.5 mg PO BID #60 tab 10/30/19 11/03/19 Rx nitroglycerin 0.4 mg SUBLINGUAL Q5M PRN #20 tab 10/30/19 11/03/19 Rx ticagrelor [Brilinta] 90 mg PO BID #60 tab 10/30/19 11/03/19 Rx imytoqt-jgvcejukrraxq-cbrgvift 250 1 tab PO Q6H PRN 11/01/19 11/03/19 History mg-250 mg-65 mg tablet Patient History Medical History Benign hypertension CAD (coronary artery disease) Cellulitis of right foot Diabetes mellitus Hypertension Paroxysmal atrial fibrillation ST elevation (STEMI) myocardial infarction Surgical History History of bladder surgery History of oophorectomy History of tubal ligation S/P drug eluting coronary stent placement Family History Sister Breast cancer Grandmother (Paternal) Diabetes Mother Hypertension Denies family history of Ovarian cancer Prostate cancer Myocardial infarction Colorectal cancer Social History Smoking Status: Former smoker Cigarettes Per Day: 20; Second Hand Exposure: No; Do You Dip or Chew Tobacco: No; Tobacco Cessation Education Requested by Patient: No Hx Alcohol Use: Yes Hx Substance Use: No Preferred Language: Palestinian Communication Ability: Effective Freight Coordinator Required: No Beliefs That Will Affect Care: None marital status: Current Living Situation: Spouse current occupational status: retired Other Information That Helps Us Care for You: No Feels Safe at Home: Yes Safety Concerns: Feels Safe At This Time caffeine: Yes (coffee) Dental Care, Regularly: Yes Physical Activity Frequency: Does not Exercise Seatbelt Use: always Sunscreen Use: No Review of Systems Review of Systems: All systems reviewed & are unremarkable except as noted in HPI & below No orthopnea. Some right arm discomfort at the site of her angiography. Physical Exam Physical Exam: She is alert and oriented x3. Mood affect appear normal. She answered all questions appropriately. HEENT: Sclerae are anicteric. Pupils are equal and reactive to light and accommodation. Extraocular movements were intact. Neuro: Cranial nerves intact Neck: Examination of the submandibular region did not reveal any significant lymphadenopathy. Carotids are palpable bilaterally and free of bruits on auscultation. There was no evidence of jugular venous distention. The thyroid was not enlarged. Lungs: Bilateral crackles. She has normal respiratory effort without use of accessory muscles. There is normal pulmonary excursion. Cardiac: The rhythm was regular. S1 and S2 were normal. There are no murmurs on examination. The PMI was not markedly displaced on palpation. No pericardial rub. Abdomen: The abdomen was soft and nontender. Extremities: Patient has bilateral radial pulses that are equal in intensity. There is no evidence cyanosis or clubbing. There is significant ecchymosis along the inner aspect of the right arm. The right arm is slightly swollen and mildly tender to palpation. However, there is good perfusion of the right hand. There was no evidence of significant peripheral edema bilaterally. Skin: There are no rashes noted on examination today. Results & Data ([facility]) Vital Signs (Past 12 Hours) Vital Signs Temp Pulse Pulse Resp BP BP BP 11/03/19 12:00 36.5 C 73 18 129/68 11/03/19 07:54 36.8 C 71 18 129/68 11/03/19 06:09 36.6 C 71 16 130/76 11/03/19 06:08 11/03/19 05:45 64 18 131/74 11/03/19 03:00 63 18 109/66 11/03/19 01:48 71 18 128/73 11/03/19 00:56 37.1 C 77 23 158/92 H Pulse Ox Pulse Ox 11/03/19 12:00 94 11/03/19 07:54 94 11/03/19 06:09 95 11/03/19 06:08 95 11/03/19 05:45 93 11/03/19 03:00 93 09/11/20 01:48 95 11/03/19 00:56 95 Laboratory Results Abnormal Lab Results 11/03/19 11/03/19 11/03/19 01:01 01:01 01:01 WBC 9.85 RBC 3.71 L Hgb 11.8 L Hct 35.0 L MCV 94.3 MCH 31.8 MCHC 33.7 RDW Std Deviation 41.6 RDW Coeff of Rachelle 12.4 Plt Count 345 MPV 9.2 Immature Gran % (Auto) 0.3 Neut % (Auto) 76.3 Lymph % (Auto) 15.2 Wolfe % (Auto) 7.0 Eos % (Auto) 1.0 Baso % (Auto) 0.2 Neut # (Auto) 7.51 H Lymph # (Auto) 1.50 Wolfe # (Auto) 0.69 H Eos # (Auto) 0.10 Baso # (Auto) 0.02 Immature Gran # (Auto) 0.03 H PT 10.4 INR 1.0 APTT 23.1 PTT Ratio 0.8 Sodium 139 Potassium 4.1 Chloride 104 Carbon Dioxide 26 Anion Gap 10.0 BUN 18 Creatinine 1.00 Est Cr Clr Drug Dosing 56.1 Est GFR ( Amer) 67.0 Est GFR (Non-Af Amer) 57.8 BUN/Creatinine Ratio 17.8 Glucose 112 H POC Glucose Calcium 10.0 Total Bilirubin 0.5 AST 40 H ALT 44 Alkaline Phosphatase 95 Total Creatine Kinase CK-MB (CK-2) CK/CKMB % Calc Troponin I 5.690 H* NT-Pro-B Natriuret Pep 2429 H Total Protein 7.5 Albumin 3.6 Globulin 3.9 Albumin/Globulin Ratio 0.9 Lipase 179 11/03/19 11/03/19 11/03/19 06:59 08:22 10:52 WBC RBC Hgb Hct MCV MCH MCHC RDW Std Deviation RDW Coeff of Rachelle Plt Count MPV Immature Gran % (Auto) Neut % (Auto) Lymph % (Auto) Wolfe % (Auto) Eos % (Auto) Baso % (Auto) Neut # (Auto) Lymph # (Auto) Wolfe # (Auto) Eos # (Auto) Baso # (Auto) Immature Gran # (Auto) PT INR APTT 36.2 H PTT Ratio 1.3 Sodium Potassium Chloride Carbon Dioxide Anion Gap BUN Creatinine Est Cr Clr Drug Dosing Est GFR ( Amer) Est GFR (Non-Af Amer) BUN/Creatinine Ratio Glucose POC Glucose 134 H Calcium Total Bilirubin AST ALT Alkaline Phosphatase Total Creatine Kinase 165 CK-MB (CK-2) 2.4 CK/CKMB % Calc 1.5 Troponin I 3.030 H* NT-Pro-B Natriuret Pep Total Protein Albumin Globulin Albumin/Globulin Ratio Lipase 11/03/19 11:28 WBC RBC Hgb Hct MCV MCH MCHC RDW Std Deviation RDW Coeff of Rachelle Plt Count MPV Immature Gran % (Auto) Neut % (Auto) Lymph % (Auto) Wolfe % (Auto) Eos % (Auto) Baso % (Auto) Neut # (Auto) Lymph # (Auto) Wolfe # (Auto) Eos # (Auto) Baso # (Auto) Immature Gran # (Auto) PT INR APTT PTT Ratio Sodium Potassium Chloride Carbon Dioxide Anion Gap BUN Creatinine Est Cr Clr Drug Dosing Est GFR ( Amer) Est GFR (Non-Af Amer) BUN/Creatinine Ratio Glucose POC Glucose 117 H Calcium Total Bilirubin AST ALT Alkaline Phosphatase Total Creatine Kinase CK-MB (CK-2) CK/CKMB % Calc Troponin I NT-Pro-B Natriuret Pep Total Protein Albumin Globulin Albumin/Globulin Ratio Lipase Diagnostic Findings Chest CTA performed at the time of admission revealed some evidence of congest allison failure. No pulmonary embolus Echocardiogram performed today revealed ejection fraction of 45% with regional wall motion abnormalities unchanged from examination performed several days ago ECG Additional Comments: EKG demonstrated normal sinus rhythm with some residual ST changes in the anterior precordial leads but no reciprocal changes. PG Care Time/CCT Total # of Minutes Spent Total Time Spent with Patient: Total time spent is greater than 50% in coordination of care (as documented) at patient's floor/unit and/or counseling patient: Coding Level of Care Code 99736 Initial Inpt Care Lvl 3 Diagnoses Chest pain R07.9 Chest pain type: unspecified Paroxysmal atrial fibrillation I48.0 Ischemic cardiomyopathy I25.5 CAD (coronary artery disease) I25.10 (1) Chest pain Chest pain type: unspecified Qualified Code(s): R07.9 - Chest pain, unspecified
--- NOTE | 2019-11-03 12:41 | Electrocardiogram Report ---
Test Reason : Blood Pressure : / mmHG Vent. Rate : 071 BPM Atrial Rate : 071 BPM P-R Int : 156 ms QRS Dur : 080 ms QT Int : 416 ms P-R-T Axes : 065 002 059 degrees QTc Int : 452 ms Normal sinus rhythm Low voltage QRS ST changes consistent with evolving anterior FL Abnormal ECG When compared with ECG of 03-NOV-2019 01:17, (unconfirmed) No significant change was found Confirmed by Erich Lazcano ([id number]) on 11/03/2019 12:41:00 PM Referred By: REFERRED SELF Confirmed By:Joaquin Lazcano
--- NOTE | 2019-11-03 12:46 | Electrocardiogram Report ---
Test Reason : Blood Pressure : / mmHG Vent. Rate : 059 BPM Atrial Rate : 059 BPM P-R Int : 166 ms QRS Dur : 074 ms QT Int : 440 ms P-R-T Axes : 030 057 030 degrees QTc Int : 435 ms Sinus bradycardia Low voltage QRS ST changes consistet with evolving anterior IA Possible Lateral infarct , age undetermined Abnormal ECG When compared with ECG of 03-NOV-2019 01:45, (unconfirmed) Borderline criteria for Lateral infarct are now Present Confirmed by Erich Lazcano ([id number]) on 11/03/2019 12:46:26 PM Referred By: REFERRED SELF Confirmed By:Joaquin Lazcano
--- NOTE | 2019-11-03 12:49 | Electrocardiogram Report ---
Test Reason : Blood Pressure : / mmHG Vent. Rate : 077 BPM Atrial Rate : 077 BPM P-R Int : 158 ms QRS Dur : 082 ms QT Int : 386 ms P-R-T Axes : 067 007 078 degrees QTc Int : 436 ms Normal sinus rhythm Low voltage QRS ST segment changes consistent with evolving anterior [place] Abnormal ECG When compared with ECG of 29-OCT-2019 15:23, No change Confirmed by Erich Lazcano ([id number]) on 11/03/2019 12:49:29 PM Referred By: REFERRED SELF Confirmed By:Joaquin Lazcano
[2019-11-03] MEDS ORDERED: FUROSEMIDE 20 MG in SYRINGE 0 ML IV ONE (13:00)
--- NOTE | 2019-11-03 14:34 | Discharge Summary ---
Date of Service November 03, 2019 Admission HPI Per Admitting Provider Nayeli Botello is a 69 year old woman with a past medical history significant for DMII and recent STEMI with stent placement in the LAD on 10/27. Since that time patient has returned home and been compliant with her appropriate discharge therapies. She has done well at home until 2300 when she started having severe chest "pressure" feeling was central and was associated with a sudden clamminess and inability to catch her breath. She also felt clammy and short of breath during her STEMI, however at that time she did not experience the pressure but rather just severe pain. She repeatedly tells me she has no pain now just a large amount of pressure. Her pain was not relieved by nitroglycerin she was brought in by ambulance. ECG showing V1 v2 v3 ST elevations not markedly different from her most recent discharge. Serial ECG's not showing obvious evolving nature. Troponin elevated at 5.69, CXR showing prominent pulmonary vasculature, no clear acute processes in the chest, CTA showing septal thickening, trace pleural effusions and possible pulmonary edema. Was given nitro and morphine. At present pressure is calmed down and she is resting comfortably though still endorses mild pressure. No other concerns at present, here with , would like to be a full code. Recently quit smoking cigarettes, no alcohol use, no drug use. Admission Exam Per Admitting Provider Constitutional: well developed, well nourished and + obese; no acute distress Eyes: PERRL, conjunctivae normal, anicteric sclerae ENMT: external ear and nose normal, oropharynx normal Respiratory: normal respiratory effort; no respiratory distress and no cough Auscultation: + crackles; no wheezes Cardiovascular: Rate/Rhythm: regular rate and regular rhythm Heart Sounds: no click, no gallop, no murmur and no cardiac rub Vessels: normal peripheral pulses Extremities: no pedal edema Gastrointestinal (Abdomen): normal bowel sounds, soft, nontender, no hepatosplenomegaly Skin: Bruising on arm from catheterization site Principal Diagnosis Chest pain Discharge Exam Constitutional well developed and well nourished; no acute distress and not ill appearing Respiratory normal respiratory effort, lungs clear to auscultation Cardiovascular RRR, no murmur, no edema Gastrointestinal (Abdomen) normal bowel sounds, soft, nontender, no hepatosplenomegaly Musculoskeletal no cyanosis or clubbing, extremities motor strength 5/5 Psychiatric A+Ox3, euthymic affect Discharge Data Allergies Allergy/AdvReac Type Severity Reaction Status Date / Time No Known Allergies Allergy Verified 11/03/19 02:16 Consultations 11/03/19 02:55 ED Decision to Admit Stat 11/03/19 06:08 Consult Cardiology Routine Ordered Studies 11/03/19 02:05 CT angio chest PE protocol Urgent Hospital Course (1) Chest pain: Nayeli Botello is a 69 year old woman with a past medical history of DMII and recent STEMI on 10/27 s/p stent x1 LAD who presents with 5 hours of chest pressure that began acutely the night of 11/02/19. Chest Pressure -Central crushing chest pressure given history of recent cath and stent placement differential is broad concerning for new thrombosis/STEMI, Stephanie syndrome -EKG showed ST elevations in V1-3 which were stable on serial exams -Initial Troponin elevated at 5.69 with declining troponin of 3.030 and 2.680. -Heparin drip was initially started, later discontinued after being seen by Cardiology. -Cardiology consulted -felt that patients discomfort was more likely secondary to pulmonary vascular congestion -Patient was given a dose of lasix, noted improvement afterwards -Recommended transition to metoprolol succinate 25mg QD -Recommended spironolactone 25mg QD -Patient to follow up with Dr. Gray next week after discharge -Patient to continue her dual anti-platelet therapy and high dose atorvastatin and ARB. Atrial Fibrillation -Patient with paroxysmal A fib not currently on anticoagulation -Cardiology consulted -DC'd heparin drip -No clinical recurrence or indication for systemic anticoagulation at this point. DMII -SSI while inpatient -Resume home meds upon DC (2) Paroxysmal atrial fibrillation: (3) Ischemic cardiomyopathy: (4) Hypertension: (5) ST elevation (STEMI) myocardial infarction: (6) S/P drug eluting coronary stent placement: (7) CAD (coronary artery disease): (8) Localized swelling of right upper extremity: (9) S/P PTCA (percutaneous transluminal coronary angioplasty): Total Time Total Time Spent Total Time Spent (In Minutes): see attending attestation Discharge Plan Discharge Items Patient Disposition: Home - Self-Care Reason For Visit: CP PAIN DAY 5 POST CATH AND STENT REPLACEMENT Discharge Diagnosis: Chest Pain Condition on Discharge: Good Activity: Per Instructions section Non-emergency contact: Primary Care Provider and Plant Manager Call non-emergency contact if: you have any medication questions and your symptoms worsen Follow-up/Referrals: Gordon Marcelino, [Primary Care Provider] - 11/20/19 9:30 am (Please follow up with Dr. Marcelino at [facility] on Wednesday11/20/2019 at 9:30 am. Please arrive to the office 15 minutes early for your appointment. If you are unable to keep this appointment, please call the office to reschedule at [phone]. ) Diet: Regular Addtl Attending Provider Instructions: Ayan, It was our pleasure caring for you at [facility] from 11/01 to 11/03/19 for your chest pressure. Please see below for a summary of your care and future instructions. Chest Pressure -This was concerning as you had recently had a heart stent placed on 10/28/19. -You were seen by our paving and surfacing labourer who did not believe you were having another heart attack, occlusion of your stent, or Stephanie syndrome. -Our paving and surfacing labourer did believe that you may have an element of pulmonary vascular congestion and provided you with a dose of IV diuretic to help with this. -They also recommended starting a medication to help with your heart function, please pick this up and take it as prescribed. -Spironolactone 25mg by mouth daily -Your Metoprolol will also be changed to Metoprolol Succinate which is a once a day medication, please pick this up and take it as prescribed. -Metoprolol Succinate 25mg by mouth daily. -Because of the Dye needed for your imaging studies, please hold your Metformin for the next 2 days. You can resume this medication on 11/06/19 -Please continue to take your home medications as prescribed including your Atorvastatin, Brilinta, Aspirin, and Cozaar. -Please follow up with your PCP and Plant Manager in the next week or sooner if your symptoms worsen. Pending Studies at Discharge: No Stand-Alone Forms: [facility], Smoking Cessation Medications and DC Order Prescriptions: New spironolactone 25 mg tablet 25 mg PO DAILY 30 Days Qty: 30 RF: 0 metoprolol succinate 25 mg tablet extended release 24 hr 25 mg PO DAILY 30 Days Qty: 30 RF: 0 Continued clobetasol 0.05 % cream See Rx Instructions .ROUTE .COMPLEX Qty: 30 RF: 0 (DME) OneTouch Ultra Blue Test Strip Strip See Dose Instructions .ROUTE .MEDSUPPLY Qty: 100 RF: 5 metformin 500 mg tablet See Rx Instructions .ROUTE .COMPLEX Qty: 0 RF: 0 (DME) lancets [OneTouch Delica Plus Lancet] 30 gauge misc See Rx Instructions .ROUTE .MEDSUPPLY Qty: 100 RF: 5 cyanocobalamin (vitamin B-12) 100 mcg tablet 100 mcg PO DAILY RF: 0 ascorbic acid (vitamin C) 500 mg capsule 500 cap PO DAILY RF: 0 pyridoxine (vitamin B6) 100 mg tablet 100 mg PO DAILY RF: 0 melatonin 5 mg tablet 5 mg PO DAILY RF: 0 turmeric 400 mg capsule 400 mg PO DAILY RF: 0 omega-3 fatty acids [Fish Oil Concentrate] 1,000 mg capsule 2,000 mg PO DAILY RF: 0 fluticasone propionate 50 mcg/actuation spray,suspension 2 sprays intranasal DAILY Qty: 18.2 RF: 0 omeprazole 20 mg tablet,delayed release (DR/EC) 20 mg PO DAILY Qty: 90 RF: 0 calcium carb,lactat-vitamin D3 200 mg calcium -250 unit tablet 2 tab PO DAILY RF: 0 losartan 50 mg tablet 50 mg PO DAILY Qty: 30 RF: 2 glipizide 5 mg tablet 5 mg PO BID Qty: 60 RF: 2 Excedrin Migraine 250-250-65 mg tablet 1 tab PO Q6H PRN (Reason: Migraine Headache) RF: 0 Brilinta 90 mg Tablet 90 mg PO BID Qty: 60 RF: 0 atorvastatin 40 mg Tablet 80 mg PO QAM Qty: 60 RF: 0 nitroglycerin 0.4 mg tablet, sublingual 0.4 mg sublingual Q5M PRN (Reason: chest pain) Qty: 20 RF: 0 aspirin 81 mg Tablet,Delayed Release (Dr/Ec) 81 mg PO QAM Qty: 30 RF: 0 Discontinued metoprolol tartrate 25 mg Tablet 12.5 mg PO BID Qty: 60 RF: 0 Discharge Orders: Discharge Order (Routine); Ordered 11/03/19 Ordered By: Dale Mckinney/Other Patient Handouts: Coronary Artery Spasm, What Is Angina?, CAD Admission Data Admit Date/Time: 09/11/20 04:28 Attending Provider: Trevor Collado Admit Provider: Fran Mccord Primary Care Provider: Gordon Marcelino Other Providers: Liana Chinchilla ; Trevor Gray. Other Interventions: Discharge Summary Assessment (RN) Last Done: 11/03/19 14:51 Supervising Physician Co-Signing Physician Notes Attending attestation Pt seen and examined in concert with Dr. Carrillo. In agreement with the documented findings as noted in the resident documentation with any exceptions or additions as noted here. 69 y/o female with recent history of STEMI with elevated troponin and LAD stent placement, DMII, HLD p/w chest pressure following stent placement. Continued improvement of left sdied chest pressure now 2/10 and diminishing, not associated with activity. On examination, S1/S2 nl RRR no MCG. CTAB. Abd NT/ND BS+ve Chest pressure in the setting of recent STEMI with LAD stent placement - cardiology consultation appreciated - start spironolactone, metoprolol succinate. Continue DAPT, statin therapy, ARB. DMII - restart PO regimen Else see resident documentation as noted. Resident Activity Tracking Resident Involvement: Resident Care Provided Care Provided: Adult Hospital Medicine
--- NOTE | 2019-11-03 18:01 | Electrocardiogram Report ---
Test Reason : Blood Pressure : / mmHG Vent. Rate : 065 BPM Atrial Rate : 065 BPM P-R Int : 160 ms QRS Dur : 088 ms QT Int : 412 ms P-R-T Axes : 068 -01 076 degrees QTc Int : 428 ms Normal sinus rhythm Low voltage QRS ST segement changes consistent with evolviing anterior IL Abnormal ECG When compared with ECG of 03-NOV-2019 00:44, (unconfirmed) No significant change was found Confirmed by Erich Lazcano ([id number]) on 11/03/2019 6:00:28 PM Referred By: REFERRED SELF Confirmed By:Joaquin Lazcano
[2019-11-04] MEDS ORDERED: SPIRONOLACTONE 25 MG TAB PO SCH (09:00)
== END 2019-11-03 15:18 | disposition home or self-care (01) ==
LOC: 2S 00:39 → ED 00:39 → SUATTDRO 04:28 → 2S 05:45